=== PATIENT | male | born 1950 | race Caucasian/White ===

== ENCOUNTER 2020-05-02 21:22 | Inpatient (IN) | payer MEDICARE, OTHER, SELFPAY ==
[2020-05-02] VITALS (21 sets, daily range): BP systolic 97–153; BP diastolic 61–91; PULSE 89–138; RESP 2–30; TEMP 34–37.3; O2SAT 86–97
--- NOTE | 2020-05-02 21:15 | RT.EKG_ITS ---
APPROVED REPORT Exam: Resting ECG Patient Location: E HR:93 bpm ECG Measurements Heart Rate 93 AXIS DC 182 P 60 QRSd 98 QRS 82 QT 356 T 59 QTc 444 Conclusion Sinus rhythm...normal P axis, V-rate 60- 99 Low voltage, precordial leads...precordial leads <1.0mV
--- NOTE | 2020-05-02 21:44 | ED.GENADUL_ITS ---
Discharge Plan Discharge Details Chief Complaint: SOB Clinical Impression: Shortness of breath Primary Care Provider: Emmie,Local ED Provider: Fabian Hanks Home Meds and New Rx's Prescriptions: No Action furosemide 40 MG tablet 40 mg PO DAILY RF: 0 clopidogrel [Plavix] 75 MG tablet 75 mg PO DAILY RF: 0 tramadol 50 MG tablet 50 mg PO PRN PRNRF: 0 lorazepam 0.5 MG tablet 0.5 mg PO PRN PRNRF: 0 simvastatin 20 MG tablet 20 mg PO DAILY RF: 0 ferrous sulfate 325 MG tablet 325 mg PO DAILY RF: 0 gabapentin 300 MG capsule 300 mg PO TID RF: 0 folic acid 1 MG tablet 1 mg PO DAILY RF: 0 docusate sodium [Stool Softener] 100 MG capsule 100 mg PO DAILY RF: 0 cholecalciferol (vitamin D3) [Vitamin D3] 400 UNIT tablet 400 unit PO DAILY RF: 0 metoprolol tartrate 12.5 MG tablet 12.5 mg PO BID Qty: 60 RF: 0 Medical Decision Making 69 yo male with hx of copd and quit smoking in 2012, tia, t2dm, who has a house in [place] but lives in [facility] and has been in [place] since April 18 c omes in with worsening shortness of breath throughout the day. HE did not bring his albuterol nebulizer or his symbicort to [place] with him. He has a oxygen machine and tank that he uses as needed per patient and used it today but had worsening shortness of breath so came here and while in the waiting room his tank ran out. HE arrives with oxygen saturations in the 70's. He is speaking in 2-3 word sentences with diffuse wheezing in all lung osei bilaterally, no significant leg swelling or jvd. He denies any chest pain/pressure and denies fevers, does have a cough but is unsure if it is worse than normal. I suspect he is having a copd exacerbation given his exam and not having his symbicort, will tx with nebulizers and symbicort and reassess. HAs no crackles on exam and no jvd or peripheral edema and no chest pain or pressure so doubt chf or acs.NO findings to suggest dvt no pleuritic chest pain and symptoms and exam consistent with copd so doubt PE Differential Diagnosis Differential Diagnosis: copd exacerbation, pna, chf ECG Data Attestation: I personally reviewed and interpreted this ECG (s) as follows: Prior ECG tracings: not available for review Interpretation: sinus rhythm, rate of 93, pr 182, qtc 444 HPI General Mode of arrival: ambulatory . Date/Time Provider Initiated Documentation: 05/02/20 21:22 . Limitations to Documentation: no limitations . Information obtained by: patient . History of Present Illness 69 year old M presents to the emergency department with the chief complaint of shortness of breath, described as moderate, Patient started experiencing this day(s) (1) and it has been constant. No relieving factors improve symptom(s), No exacerbating factors reported . Related Data Home Medications Medication Instructions Recorded Confirmed cholecalciferol (vitamin D3) 400 unit PO DAILY 04/30/15 05/02/20 [Vitamin D3] clopidogrel [Plavix] 75 mg PO DAILY 04/30/15 05/02/20 docusate sodium [Stool Softener] 100 mg PO DAILY 04/30/15 05/02/20 ferrous sulfate 325 mg PO DAILY 04/30/15 05/02/20 folic acid 1 mg PO DAILY 04/30/15 05/02/20 furosemide 40 mg PO DAILY 04/30/15 05/02/20 gabapentin 300 mg PO TID 04/30/15 05/02/20 lorazepam 0.5 mg PO PRN PRN 04/30/15 05/02/20 simvastatin 20 mg PO DAILY 04/30/15 05/02/20 tramadol 50 mg PO PRN PRN 04/30/15 05/02/20 metoprolol tartrate 12.5 mg PO BID #60 tab 05/02/15 05/02/20 Previous Rx's Medication Instructions Recorded metoprolol tartrate 12.5 mg PO BID #60 tab 05/02/15 Allergies Allergy/AdvReac Type Severity Reaction Status Date / Time No Known Allergies Allergy Unverified 05/02/20 21:50 Review of Systems All systems reviewed & are unremarkable except as noted in HPI and below Constitutional Constitutional: Denies chills, Denies fever(s) and Denies weakness Cardiovascular Cardiovascular: Denies chest pain and Denies dyspnea Respiratory Respiratory: Denies cough and Denies dyspnea Gastrointestinal Gastrointestinal: Denies abdominal pain, Denies nausea and Denies vomiting Musculoskeletal Musculoskeletal: Denies joint swelling Neurologic Neurologic: Denies weakness Psychiatric Psychiatric: Denies depression [facility] Social History Smoking/Tobacco Use Status: Former Tobacco Use Quit Date: 07/21/12 Alcohol Intake: current Alcohol Intake frequency: a few times a week Drug use: Never Do you feel safe at home: Yes Do you feel safe in your relationship?: Yes Exam Const General: no acute distress Orientation: alert HENMT Head: normal to inspection Ears: external ears normal General nose exam: external nose normal Mouth: moist mucous membranes Eyes General: appearance normal, both eyes and all related structures Neck Neck: normal visual inspection Resp Effort & Inspection: audible wheezes Cardio Rate: regular rate Skin General skin exam: no rashes or lesions noted Neuro General: patient alert and patient oriented x3 Extrem General: normal to inspection Psych Mental Status: mental status grossly normal Course Lab/Test Results Lab/Test Results: 05/02/20 21:28 Blood Blood Culture - Pending 05/02/20 21:28 Blood Blood Culture - Pending
[2020-05-02] MEDS: methylPREDNISolone SUCC 125 MG VIAL IVP (21:53)
--- NOTE | 2020-05-02 22:00 | DI.RAD_ITS ---
EXAM: XR PORTABLE CHEST AP CLINICAL HISTORY: cough, shortness of breath TECHNIQUE: 2D digital imaging was performed. COMPARISON: CR CHEST 2 VIEWS PA,LAT from 04/30/2015 FINDINGS: MEDIASTINUM: Normal. HEART: Upper limits of normal in size. PULMONARY VASCULATURE: Normal. LUNGS: Increased interstitial infiltrates particularly in the lung bases left greater than right. PLEURAL SPACE: No pleural effusion or pneumothorax. BONE:Within normal limits for the patient's age. OTHER FINDINGS:Normal. IMPRESSION: Bilateral basilar interstitial infiltrates. DATA REPOSITORY: RADIATION DOSE DELIVERED:
[2020-05-02] MEDS: Albuterol/Ipratropium 3 ML UPD VIAL UPD ×2 (22:06→22:32)
[2020-05-02 22:15] LABS: BE (Venous) 7 mmol/L (-2-3); HCO3 (Venous) 34 mmol/L (23-28); O2 Sat (Venous) 83 %; TCO2 (Venous) 33 mmol/L (24-29); pH (Venous) 7.23 (7.31-7.41); pO2 (Venous) 53 mmHg
[2020-05-02 22:17] LABS: pCO2 (Venous) 81 mmHg (41-51)
--- NOTE | 2020-05-02 23:17 | RESPIRATORY ---
RT called to ED concerning patient being SOB when on 8L NC. Patient baseline is 4L-8L throughout the day as needed per , uses mostly for ambulation. RT asked to place patient on HF System to ease WOB, intial settings: 34 degree C/20LPM/FiO2 60%. RT worked with patient concerning setting and patient left comfortable.
[2020-05-02 23:18] LABS: PTT Activated 27.7 sec (21.0-31.4); Prothrombin Time 10.3 sec (9.3-11.0)
[2020-05-02 23:21] LABS: ALT 10 U/L (16-63); AST 12 U/L (15-37); Albumin 3.6 g/dL (3.4-5.0); Alkaline Phosphatase 145 U/L (46-116); Anion Gap 4.3 mmol/L (3-11); BUN 15 mg/dL (7-18); Bilirubin, Total 0.6 mg/dL (0.2-1.0); CO2 33.7 mmol/L (21.0-32.0); CREATININE 1.67 mg/dL (0.70-1.30); Calcium 8.9 mg/dL (8.5-10.1); Chloride 101 mmol/L (98-107); Glucose 167 mg/dL (74-106); Potassium 5.1 mmol/L (3.5-5.1); Sodium 139 mmol/L (136-145); Total Protein 7.7 g/dL (6.4-8.2); Troponin I < 0.05 ng/mL (<0.06)
[2020-05-02 23:27] LABS: Magnesium 1.9 mg/dL (1.8-2.4); NT-proBNP 1579 pg/mL (<300)
[2020-05-02 23:49] LABS: Abs Immature Grans 0.07 10^3/uL (0.0-0.06); Absolute Basophil Count 0.03 10^3/uL (0.0-0.2); Absolute Eosinophil Count 0.14 10^3/uL (0.0-0.7); Absolute Lymphocyte Count 0.66 10^3/uL (1.2-3.4); Absolute Neutrophil Count 13.72 10^3/uL (1.2-6.7); Basophils % 0.2; Eosinophils % 0.9; HCT 35.2 % (40.0-50.0); HGB 10.3 g/dL (13.5-17.5); Immature Grans % 0.5; Lymphocytes % 4.3; MCH 31.4 pg (27.0-33.0); MCHC 29.3 % (32.0-36.0); MCV 107.3 fL (80-95); MPV 10.2 fL (8.0-11.0); Monocytes % 5.2; Neutrophils % 88.9; Nucleated RBC 0 %; Platelet Count 244 10^3/uL (130-400); RBC 3.28 10^6/uL (4.36-5.78); RDW 13.9 % (11.8-14.1); RDW-SD 55.2 fL; WBC 15.43 10^3/uL (4.4-10.8)
[2020-05-02] MEDS: PIPERACILLIN/TAZO 4.5 GM in Normal Saline 100 ML IVPB (23:50)
[2020-05-03] VITALS (68 sets, daily range): BP systolic 113–174; BP diastolic 41–95; PULSE 82–112; RESP 4–27; TEMP 34–37.2; O2SAT 84–99
[2020-05-03] MEDS: VANCOMYCIN 1,000 MG in Normal Saline 250 ML 166.6666 MG IVPB (00:10)
--- NOTE | 2020-05-03 00:14 | W.PM.HP.N ---
Date of service: 05/03/20 Time of Service: 00:14 Assessment and Plan Assessment and plan (1) Pneumonia: Status: Acute Assessment and plan: CXR shows bilateral LL infiltrates. He was hospitalized just over a month ago in [place]. Zosyn and Vanc initiated. Monitor WBC count and blood cultures. Qualifiers: Pneumonia type: due to unspecified organism (2) Essential hypertension: Status: Acute Assessment and plan: SBP in the 120-150's currently Cont metoprolol Monitor (3) TIA (transient ischemic attack): Status: Acute Assessment and plan: Past history of TIA On Plavix, statin. (4) HLD (hyperlipidemia): Status: Acute Assessment and plan: Cont statin (5) Diabetes mellitus type 2 with neurological manifestations: Status: Acute Assessment and plan: He takes Trulicity at home Suspect his glucose readings will be elevated d/t IV steroid. Monitor with ACHS glucose readings. Correction Insulin dosing; adjust as necessary He does have diabetic peripheral neuropathy and uses Gabapentin; continue. (6) COPD (chronic obstructive pulmonary disease): Status: Chronic Assessment and plan: Previous 3 pack a day smoker Uses Symbicort and albuterol nebs at home Cont Symbicort. Scheduled Duonebs QID PRN albuterol nebs. 125mg IV solumedrol given in ED Begin 60mg IV solumedrol Q8H at 0600. Consider changing to oral prednisone particularly if blood sugar control becomes an issue. History of Present Illness History of Present Illness Chief Complaint: Shortness of breath Narrative: This is a 69 yo male with a h/o COPD, previous tobacco abuse, DM2, HTN, HLD, GERD. He endorsed shortness of air that began on the day of presentation; worsening throughout the day. He does have supplemental oxygen that he uses prn but it did not provide relief. He lives in [facility]. He and his have been at their camp in [place] since 04/18/2020. He did not bring his albuterol nebs or Symbicort with him. He denied CP/palpitations, F/C. + cough but essentially like his baseline. Upon arrival his RA O2 saturations were in the low 70's. He was placed on supplemental O2 per NC, then advanced to High-flow O2 to maintain his O2 saturations above 90%. WBC count 15.43 with a left shift. CXR showed Bilateral lower lobe infiltrates. Zosyn and Vancomycin initiated in the ED. Blood cultures drawn. Admitted to the ICU. Review of Systems All systems reviewed & are unremarkable except as noted in HPI and below PFSH Social History Smoking/Tobacco Use Status: Former Tobacco Use Quit Date: 07/21/12 Alcohol Intake: current Alcohol Intake frequency: a few times a week Drug use: Never Do you feel safe at home: Yes Do you feel safe in your relationship?: Yes Meds Home Medications and Allergies Home Medications Medication Instructions Recorded Confirmed Type cholecalciferol (vitamin D3) 400 unit PO DAILY 04/30/15 05/02/20 History [Vitamin D3] clopidogrel [Plavix] 75 mg PO DAILY 04/30/15 05/02/20 History docusate sodium [Stool Softener] 100 mg PO DAILY 04/30/15 05/02/20 History ferrous sulfate 325 mg PO DAILY 04/30/15 05/02/20 History folic acid 1 mg PO DAILY 04/30/15 05/02/20 History furosemide 40 mg PO DAILY 04/30/15 05/02/20 History gabapentin 300 mg PO TID 04/30/15 05/02/20 History lorazepam 0.5 mg PO PRN PRN 04/30/15 05/02/20 History simvastatin 20 mg PO DAILY 04/30/15 05/02/20 History tramadol 50 mg PO PRN PRN 04/30/15 05/02/20 History metoprolol tartrate 12.5 mg PO BID #60 tab 05/02/15 05/02/20 Rx Allergies Allergy/AdvReac Type Severity Reaction Status Date / Time No Known Allergies Allergy Unverified 05/02/20 21:50 Exam Const General: cooperative and no acute distress Nutritional Appearance: obese Orientation: alert and oriented x3 Eyes Sclera: sclerae normal Pupils: PERRL Resp Effort & Inspection: able to speak in complete sentences Auscultation: diminished lung sounds and rales bilaterally Cardio Jugular venous pressure: no JVD Rate: tachycardic Rhythm: regular rhythm Heart Sounds: S1 normal and S2 normal GI Palpation: soft and nontender Auscultation: normal bowel sounds Skin General skin exam: no rashes or lesions noted Neuro General: moves all extremities Cranial Nerves: CN's II-XI intact bilaterally Cognition: normal cognition Speech: speech normal Extrem General: no clubbing, cyanosis or edema Psych Appearance: grossly normal Mental Status: mental status grossly normal Speech and Movement: speech and movement normal Affect: normal affect Attitude: cooperative Results Labs Result diagrams: 05/02/20 23:30 05/02/20 22:40 Labs: Laboratory Results - last 24 hr 05/02/20 05/02/20 05/02/20 21:35 22:40 22:40 WBC RBC Hgb Hct MCV MCH MCHC RDW Plt Count MPV Immature Gran % Neutrophils % Band Neutrophils % Lymphocytes % Atypical Lymphs % Monocytes % Eosinophils % Basophils % Metamyelocytes % Myelocytes % Promyelocytes % Other Cells % Nucleated RBC % Absolute Neutrophils Absolute Lymphocytes Absolute Monocytes Absolute Eosinophils Absolute Basophils RBC Morphology Polychromasia Hypochromasia Poikilocytosis Basophilic Stippling Anisocytosis Microcytosis Macrocytosis Spherocytes Tear Drop Cells Ovalocytes Stomatocytes [place] Bodies [place] Cells/Echinocytes Acanthocytes (Spur) Schistocytes PT INR APTT VBG pH 7.23 L VBG pCO2 81 H* VBG pO2 53 VBG HCO3 34 H VBG Total CO2 33 H VBG O2 Saturation 83 VBG Base Excess 7 H Sodium 139 Potassium 5.1 Chloride 101 Carbon Dioxide 33.7 H Anion Gap 4.3 BUN 15 Creatinine 1.67 H Estimated GFR/1.73 m2 41.00 Glucose 167 H Calcium 8.9 Magnesium 1.9 Total Bilirubin 0.6 AST 12 L ALT 10 L Alkaline Phosphatase 145 H Troponin I < 0.05 NT-Pro-B Natriuret Pep 1579 H Total Protein 7.7 Albumin 3.6 05/02/20 05/03/20 22:40 05:35 WBC Cancelled RBC Cancelled Hgb Cancelled Hct Cancelled MCV Cancelled MCH Cancelled MCHC Cancelled RDW Cancelled Plt Count Cancelled MPV Cancelled Immature Gran % Cancelled Neutrophils % Cancelled Band Neutrophils % Cancelled Lymphocytes % Cancelled Atypical Lymphs % Cancelled Monocytes % Cancelled Eosinophils % Cancelled Basophils % Cancelled Metamyelocytes % Cancelled Myelocytes % Cancelled Promyelocytes % Cancelled Other Cells % Cancelled Nucleated RBC % Cancelled Absolute Neutrophils Cancelled Absolute Lymphocytes Cancelled Absolute Monocytes Cancelled Absolute Eosinophils Cancelled Absolute Basophils Cancelled RBC Morphology Cancelled Polychromasia Cancelled Hypochromasia Cancelled Poikilocytosis Cancelled Basophilic Stippling Cancelled Anisocytosis Cancelled Microcytosis Cancelled Macrocytosis Cancelled Spherocytes Cancelled Tear Drop Cells Cancelled Ovalocytes Cancelled Stomatocytes Cancelled [place] Bodies Cancelled Luan Cells/Echinocytes Cancelled Acanthocytes (Spur) Cancelled Schistocytes Cancelled PT 10.3 INR 1.0 APTT 27.7 VBG pH VBG pCO2 VBG pO2 VBG HCO3 VBG Total CO2 VBG O2 Saturation VBG Base Excess Sodium Potassium Chloride Carbon Dioxide Anion Gap BUN Creatinine Estimated GFR/1.73 m2 Glucose Calcium Magnesium Total Bilirubin AST ALT Alkaline Phosphatase Troponin I NT-Pro-B Natriuret Pep Total Protein Albumin Last Vital Signs Temp 37.3 C 05/02/20 23:51 Pulse 104 H 05/02/20 23:51 Resp 24 05/02/20 23:51 BP 146/61 H 05/02/20 23:51 Pulse Ox 97 05/02/20 23:51 COVID-19 Screening Have you,or household,traveled outside [place] in last 14 days?: No Had IN PERSON contact w/suspected or confirmed C-19 person: No
[2020-05-03] MEDS: traMADol 50 MG TAB PO (00:15)
[2020-05-03 00:16] LABS: Basophilic Stippling 1+; Macrocytosis 2+
[2020-05-03 00:17] LABS: Diff Comment Agrees w/ Instrument
[2020-05-03] MEDS: Albuterol/Ipratropium 3 ML UPD VIAL UPD ×4 (00:20→18:19)
[2020-05-03] MEDS: PIPERACILLIN/TAZO 3.375 GM in Normal Saline 50 ML IVPB ×3 (06:57→19:23)
[2020-05-03 07:21] LABS: Abs Immature Grans 0.07 10^3/uL (0.0-0.06); Absolute Basophil Count 0.01 10^3/uL (0.0-0.2); Absolute Lymphocyte Count 0.17 10^3/uL (1.2-3.4); Absolute Monocyte Count 0.11 10^3/uL (0.1-0.8); Absolute Neutrophil Count 11.78 10^3/uL (1.2-6.7); Basophils % 0.1; HCT 32.9 % (40.0-50.0); HGB 9.9 g/dL (13.5-17.5); Immature Grans % 0.6; Lymphocytes % 1.4; MCH 31.6 pg (27.0-33.0); MCHC 30.1 % (32.0-36.0); MCV 105.1 fL (80-95); MPV 10.3 fL (8.0-11.0); Monocytes % 0.9; Nucleated RBC 0 %; Platelet Count 216 10^3/uL (130-400); RBC 3.13 10^6/uL (4.36-5.78); RDW-SD 54.3 fL; WBC 12.14 10^3/uL (4.4-10.8)
[2020-05-03 07:31] LABS: Anion Gap 4.6 mmol/L (3-11); BUN 20 mg/dL (7-18); CO2 30.4 mmol/L (21.0-32.0); CREATININE 1.85 mg/dL (0.70-1.30); Calcium 8.5 mg/dL (8.5-10.1); Chloride 102 mmol/L (98-107); Estimated GFR 36.43 (mL/min/1.73m2); Glucose 280 mg/dL (74-106); Sodium 137 mmol/L (136-145)
[2020-05-03 07:35] LABS: Potassium 6.3 mmol/L (3.5-5.1)
--- NOTE | 2020-05-03 07:45 | RT.EKG_ITS ---
APPROVED REPORT Exam: Resting ECG Patient Location: I HR:99 bpm ECG Measurements Heart Rate 99 AXIS VA [id number] P [id number] QRSd 97 QRS 82 QT 335 T 51 QTc 430 Conclusion Sinus rhythm Low voltage, extremity and precordial leads...extremity<0.5mV, precordial<1.0mV
[2020-05-03] MEDS: Insulin REGULAR-Human 100 UNITS/ML UNIT IV ×2 (08:00→13:43)
[2020-05-03 08:11] LABS: Creatine Kinase 89 U/L (39-308)
--- NOTE | 2020-05-03 08:12 | W.PM.PROGNOT ---
Date of Service Date of service: 05/03/20 Time of Service: 12:37 Assessment and Plan Assessment and plan (1) Acute on chronic respiratory failure with hypoxia and hypercapnia: Status: Acute Assessment and plan: Due to BLL PNA, present on admission (?HCAP, ?COVID), causing acute exacerbation of COPD. BiPAP is indicated with the pH of 7.24, pCO2 of 73. Continue abx, nebs, steroids. Obtain sputum culture. Await blood cultures. Keep in ICU. (2) Pneumonia: Status: Acute Assessment and plan: As above Qualifiers: Pneumonia type: due to unspecified organism (3) Acute respiratory acidosis: Status: Acute Assessment and plan: As above (4) Acute exacerbation of chronic obstructive pulmonary disease (COPD): Status: Acute Assessment and plan: As above (5) Hyperkalemia: Status: Acute Assessment and plan: In setting of hyperglycemia. R/o DKA - obtain UA. Treating with IV insulin, renal diet. He is on lasix. Repeat BMP at 6 pm. (6) Steroid-induced hyperglycemia: Status: Acute Assessment and plan: Start long acting insulin. Continue corrective insulin as well. (7) Toxic metabolic encephalopathy: Status: Acute Assessment and plan: Likely due to CO2 narcosis. Monitor mental status on BiPAP. (8) Diabetes mellitus type 2 with neurological manifestations: Status: Chronic Assessment and plan: See steroid induced hyperglycemia (9) DVT prophylaxis: Status: Acute Assessment and plan: lovenox on hold due to hyperkalemia. Start TEDs/SCDs. (10) Discharge planning issues: Status: Acute Assessment and plan: Full code. Keep in ICU. Total Critical Care Time 60 minutes. Subjective Subjective Interval history since last seen: Afebrile. Afib 90-110. SBPs 130-150. Patient had been disoriented overnight, more awake this am, but then fell asleep and difficult to arouse since. When he did open his eyes, he would fall right back asleep. He was not answering my questions. He was having abdominal breathing with apneic pauses, c/w GAYATRI. When he did wake up somewhat, he was disoriented (A&Ox1), taking off his O2 (not yet on BiPAP) and trying to leave the room. O2 sats went down to low 70s on room air. He did eventually permit the humidified heated high flow to be replaced on him, and now is on BiPAP, trying to take it off. Impulsive. CHANG on minimal movements. Nursing reports congested cough. Hyperkalemic this am. Exam Narrative Exam Narrative: General: Obese male, lethargic and difficult to arouse, drooling, having abdominal breathing and apneic pauses, A&Ox1 when transiently awake, becomes uncooperative/impulsive. HEENT: EOMI, MMM Heart: RRR, no m/r/g Lungs: Rhonchi B anteriorly Abdomen: obese, soft, nontender Extremities: no edema BLEs Objective Last Vital Signs Temp 36.8 C 05/03/20 04:45 Pulse 101 H 05/03/20 06:02 Resp 20 05/03/20 06:02 BP 138/51 L 05/03/20 06:02 Pulse Ox 96 05/03/20 06:02 Laboratory Results - last 24 hr 05/02/20 05/02/20 05/02/20 21:35 22:40 22:40 WBC RBC Hgb Hct MCV MCH MCHC RDW Plt Count MPV Immature Gran % Neutrophils % Band Neutrophils % Lymphocytes % Atypical Lymphs % Monocytes % Eosinophils % Basophils % Metamyelocytes % Myelocytes % Promyelocytes % Other Cells % Nucleated RBC % Absolute Neutrophils Absolute Lymphocytes Absolute Monocytes Absolute Eosinophils Absolute Basophils RBC Morphology Polychromasia Hypochromasia Poikilocytosis Basophilic Stippling Anisocytosis Microcytosis Macrocytosis Spherocytes Tear Drop Cells Ovalocytes Stomatocytes [place] Bodies Luan Cells/Echinocytes Acanthocytes (Spur) Schistocytes PT INR APTT VBG pH 7.23 L VBG pCO2 81 H* VBG pO2 53 VBG HCO3 34 H VBG Total CO2 33 H VBG O2 Saturation 83 VBG Base Excess 7 H Sodium 139 Potassium 5.1 Chloride 101 Carbon Dioxide 33.7 H Anion Gap 4.3 BUN 15 Creatinine 1.67 H Estimated GFR/1.73 m2 41.00 Glucose 167 H Calcium 8.9 Magnesium 1.9 Total Bilirubin 0.6 AST 12 L ALT 10 L Alkaline Phosphatase 145 H Troponin I < 0.05 NT-Pro-B Natriuret Pep 1579 H Total Protein 7.7 Albumin 3.6 05/02/20 05/02/20 05/03/20 22:40 23:30 00:27 WBC 15.43 H RBC 3.28 L Hgb 10.3 L Hct 35.2 L MCV 107.3 H MCH 31.4 MCHC 29.3 L RDW 13.9 Plt Count 244 MPV 10.2 Immature Gran % 0.5 Neutrophils % 88.9 Band Neutrophils % Lymphocytes % 4.3 Atypical Lymphs % Monocytes % 5.2 Eosinophils % 0.9 Basophils % 0.2 Metamyelocytes % Myelocytes % Promyelocytes % Other Cells % Nucleated RBC % 0 Absolute Neutrophils 13.72 H Absolute Lymphocytes 0.66 L Absolute Monocytes 0.80 Absolute Eosinophils 0.14 Absolute Basophils 0.03 RBC Morphology See below Polychromasia Hypochromasia Poikilocytosis Basophilic Stippling 1+ Anisocytosis Microcytosis Macrocytosis 2+ Spherocytes Tear Drop Cells Ovalocytes Stomatocytes [place] Bodies [place] Cells/Echinocytes Acanthocytes (Spur) Schistocytes PT 10.3 INR 1.0 APTT 27.7 VBG pH VBG pCO2 VBG pO2 VBG HCO3 VBG Total CO2 VBG O2 Saturation VBG Base Excess Sodium Potassium Chloride Carbon Dioxide Anion Gap BUN Creatinine Estimated GFR/1.73 m2 Glucose Calcium Magnesium Total Bilirubin AST ALT Alkaline Phosphatase Troponin I Cancelled NT-Pro-B Natriuret Pep Total Protein Albumin 05/03/20 05/03/20 05/03/20 05:35 06:50 06:50 WBC Cancelled 12.14 H RBC Cancelled 3.13 L Hgb Cancelled 9.9 L Hct Cancelled 32.9 L MCV Cancelled 105.1 H MCH Cancelled 31.6 MCHC Cancelled 30.1 L RDW Cancelled 14.0 Plt Count Cancelled 216 MPV Cancelled 10.3 Immature Gran % Cancelled 0.6 Neutrophils % Cancelled 97.0 Band Neutrophils % Cancelled Lymphocytes % Cancelled 1.4 Atypical Lymphs % Cancelled Monocytes % Cancelled 0.9 Eosinophils % Cancelled 0.0 Basophils % Cancelled 0.1 Metamyelocytes % Cancelled Myelocytes % Cancelled Promyelocytes % Cancelled Other Cells % Cancelled Nucleated RBC % Cancelled 0 Absolute Neutrophils Cancelled 11.78 H Absolute Lymphocytes Cancelled 0.17 L Absolute Monocytes Cancelled 0.11 Absolute Eosinophils Cancelled 0.00 Absolute Basophils Cancelled 0.01 RBC Morphology Cancelled Polychromasia Cancelled Hypochromasia Cancelled Poikilocytosis Cancelled Basophilic Stippling Cancelled Anisocytosis Cancelled Microcytosis Cancelled Macrocytosis Cancelled Spherocytes Cancelled Tear Drop Cells Cancelled Ovalocytes Cancelled Stomatocytes Cancelled [place] Bodies Cancelled [place] Cells/Echinocytes Cancelled Acanthocytes (Spur) Cancelled Schistocytes Cancelled PT INR APTT VBG pH VBG pCO2 VBG pO2 VBG HCO3 VBG Total CO2 VBG O2 Saturation VBG Base Excess Sodium 137 Potassium 6.3 H* Chloride 102 Carbon Dioxide 30.4 Anion Gap 4.6 BUN 20 H Creatinine 1.85 H Estimated GFR/1.73 m2 36.43 Glucose 280 H D Calcium 8.5 Magnesium Total Bilirubin AST ALT Alkaline Phosphatase Troponin I NT-Pro-B Natriuret Pep Total Protein Albumin Objective Narrative Objective Narrative: EKG: HR 99, NSR, no acute ischemia, no peaked T waves; lead placement issues V1 and V2.
[2020-05-03 08:28] LABS: BE (Venous) 3 mmol/L (-2-3); HCO3 (Venous) 30 mmol/L (23-28); O2 Sat (Venous) 97 %; TCO2 (Venous) 29 mmol/L (24-29); pH (Venous) 7.28 (7.31-7.41); pO2 (Venous) 85 mmHg
[2020-05-03 08:39] LABS: pCO2 (Venous) 64 mmHg (41-51)
[2020-05-03] MEDS: Budesonide/Formoterol 160/4.5 6 GM 60 PUFF INH IH ×2 (09:29→21:12)
[2020-05-03] MEDS: Docusate Sodium 100 MG CAP PO (09:30)
[2020-05-03] MEDS: Furosemide 40 MG TAB PO (09:30)
[2020-05-03] MEDS: Gabapentin 300 MG CAP PO ×3 (09:30→21:09)
[2020-05-03] MEDS: Folic Acid 1 MG TAB PO (09:30)
[2020-05-03] MEDS: Clopidogrel 75 MG TAB PO (09:30)
[2020-05-03] MEDS: methylPREDNISolone SUCC 125 MG VIAL 60 MG IVP ×2 (09:31→16:59)
[2020-05-03] MEDS: Pantoprazole 40 MG VIAL IVP (09:32)
[2020-05-03] MEDS: Metoprolol 25 MG TAB 12.5 MG PO ×2 (09:32→21:09)
[2020-05-03] MEDS: Simvastatin 20 MG TAB PO (09:33)
--- NOTE | 2020-05-03 09:36 | INITIAL_ITS ---
- If Service Date Differs Date of service: 05/03/20 Time of Service: 09:36 Care Management Initial Assess REASON FOR HOSPITALIZATION:: Pneumonia PAST MEDICAL HISTORY/PAST SURGICAL HISTORY:: Diabetes Mellitus Type 2. Hypertension. Hyperlipidemia. COPD. TIA PREVIOUS FUNCTIONAL STATUS/SOCIAL/FAMILY SUPPORTS:: Malachi lives in [place], [place] with his Melania. They spend timer at their camp in [place] CURRENT FUNCTIONAL STATUS:: CM unable to meet with Malachi as he is a PUI. ADVANCE DIRECTIVES:: none on file Has patient been provided with info about the portal/API?: No Did the patient sign up for the portal?: No (out of state) CODE STATUS:: Full Code INSURANCE COVERAGE / FINANCIAL ISSUES:: [email or web address] Plan CURRENT HOME/COMMUNITY SERVICES/EQUIPMENT:: CPAP. Home oxygen at 2L PRIMARY CARE PHYSICIAN:: none local - lives in [place] POTENTIAL DISCHARGE NEEDS:: Follow up with PCP and discharge plan of care PATIENT/FAMILY EDUCATION NEEDS:: Discharge plan, limitations, follow up plan, Ask Me Three TRANSPORTATION:: via private vehicle with PLAN:: Malachi will likely be discharged home with no new services. He will foll ow up with his PCP and discharge plan of care. Malachi will transport via private vehicle with . CM will continue to support Oscar and assess for discharge planning needs.
[2020-05-03] MEDS: Insulin Aspart 300 UNITS/3 ML PEN SC ×4 (09:45→21:16)
[2020-05-03] MEDS: Cholecalciferol (Vitamin D3) 400 UNIT TAB PO (09:46)
[2020-05-03 12:43] LABS: BE 4 mmol/L (-2-3); HCO3 31 mmol/L (22-26); pH 7.24 (7.35-7.45); pO2 71 mmHg (80-105); sO2 93 % (95-98); tCO2 30 mmol/L (23-27)
[2020-05-03 12:49] LABS: FIO2 30 %; Site Left Radial; pCO2 73 mmHg (35-45)
[2020-05-03 12:51] LABS: Anion Gap 5.7 mmol/L (3-11); BUN 24 mg/dL (7-18); CO2 29.3 mmol/L (21.0-32.0); CREATININE 1.91 mg/dL (0.70-1.30); Calcium 8.4 mg/dL (8.5-10.1); Chloride 100 mmol/L (98-107); Estimated GFR 35.11 (mL/min/1.73m2); Glucose 321 mg/dL (74-106); Potassium 5.4 mmol/L (3.5-5.1); Sodium 135 mmol/L (136-145)
--- NOTE | 2020-05-03 13:26 | NUR.NOTE ---
G is reported to MD via [facility] at 12:45 p.m.Nursing Note:
[2020-05-03] MEDS: LORazepam 2 MG/ML VIAL 0.5 MG IVP (13:36)
--- NOTE | 2020-05-03 13:39 | PHA.REVIEW ---
Pharmacy Admission Review - Admission Clinical Review Pneumonia (Acute) Essential hypertension (Acute) TIA (transient ischemic attack) (Acute) HLD (hyperlipidemia) (Acute) Diabetes mellitus type 2 with neurological manifestations (Acute) No Known Allergies Allergy (Unverified 05/02/20 21:50) Height 5 ft 11 in Weight 111.9 kg - Renal Dosing Renal Dosing: BUN 24 mg/dL (7-18) H 05/03/20 12:25 Creatinine 1.91 mg/dL (0.70-1.30) H 05/03/20 12:25 Medications needing adjustments: Reviewed (CrCl ~46.4ml/min using adjusted bw) List of meds needing interventions: Zosyn renal dose adjustment not needed unless <40ml/min - Anticoagulation Anticoagulation: Hgb 9.9 g/dL (13.5-17.5) L 05/03/20 06:50 Hct 32.9 % (40.0-50.0) L 05/03/20 06:50 Plt Count 216 10^3/uL (130-400) 05/03/20 06:50 INR 1.0 (0.9-1.1) 05/02/20 22:40 Creatinine 1.91 mg/dL (0.70-1.30) H 05/03/20 12:25 DVT Prohphylaxis: Reviewed (on hold due to hyperkalemia) Therapeutic Anticoagulation: N/A - Opiate Usage Evaluate Pain Scale/Pains Meds: Reviewed - Relevant Labs Sodium 135 mmol/L (136-145) L 05/03/20 12:25 Potassium 5.4 mmol/L (3.5-5.1) H 05/03/20 12:25 Chloride 100 mmol/L (98-107) 05/03/20 12:25 Magnesium 1.9 mg/dL (1.8-2.4) 05/02/20 22:40 Electrolytes, C-Reactive P, ESR: Reviewed (2 doses of 5 units of regular insulin given for k+ level (6.3 this AM, repeat was 5.4)) - DM Control DM Control: Glucose 321 mg/dL (74-106) H 05/03/20 12:25 Finger Stick Blood Glucose 332 Finger Stick Blood Glucose 332 Finger Stick Blood Glucose 274 Finger Stick Blood Glucose 274 Insulin Dosing: Reviewed (aspart per SS plus lantus 10U HS started today 05/03 (new)) - Heart Failure/WV Heart Failure/WV: Troponin I Cancelled 05/03/20 00:27 NT-Pro-B Natriuret Pep 1579 pg/mL (<300) H 05/02/20 22:40 EF%, REMA's, B-Blockers, Diuretics: Reviewed - BP Control BP Control: Blood Pressure [Right Arm] 138/54 Blood Pressure 149/63 Blood Pressure 130/52 Blood Pressure 130/52 Blood Pressure 135/58 Blood Pressure 138/54 Blood Pressure 140/57 Blood Pressure 138/51 Blood Pressure 136/52 Blood Pressure 132/42 Blood Pressure 150/58 If elevated: Reviewed - Qtc Review If Elevated: Reviewed - IV to PO Switch IV Medications: Reviewed - Home Meds Home Med List reviewed: Reviewed Relevent Home Meds Not ordered & why?: ferrous sulfate 325; rest ordered - Current meds Current Medication Order Review: Intervened (only a 1 time dose was ordered in the ED -- pharmacy protocol dosing was not ordered, spoke to MD and should have been continued, dosed per protocol at 1 gram q20h. The initial loading dose should have been higher so I timed the next dose to be given after 16 hours as opposed to 20) - Comments Comments/Follow Ups: Zosyn plus vancomycin for pneumonia (was hospitalized just over a month ago in [place]) -- WATCH KIDNEY FUNCTION
[2020-05-03 16:17] LABS: COVID-19 RT-PCR UVMMC Result Negative (Negative)
[2020-05-03] MEDS: VANCOMYCIN 1,000 MG in Normal Saline 250 ML 166.667 MG IVPB (16:58)
[2020-05-03 16:59] LABS: BE (Venous) 3 mmol/L (-2-3); HCO3 (Venous) 30 mmol/L (23-28); O2 Sat (Venous) 97 %; TCO2 (Venous) 29 mmol/L (24-29); pH (Venous) 7.27 (7.31-7.41); pO2 (Venous) 86 mmHg
[2020-05-03 17:01] LABS: pCO2 (Venous) 65 mmHg (41-51)
[2020-05-03] MEDS: Normal Saline Flush 10 ML SYR IVP (17:01)
[2020-05-03 19:23] LABS: Anion Gap 6.1 mmol/L (3-11); BUN 26 mg/dL (7-18); CO2 29.9 mmol/L (21.0-32.0); CREATININE 1.98 mg/dL (0.70-1.30); Calcium 8.7 mg/dL (8.5-10.1); Chloride 101 mmol/L (98-107); Estimated GFR 33.68 (mL/min/1.73m2); Glucose 263 mg/dL (74-106); Potassium 4.7 mmol/L (3.5-5.1); Sodium 137 mmol/L (136-145)
[2020-05-03] MEDS: Insulin Glargine 300 UNITS/3 ML PEN 10 UNITS SC (21:13)
[2020-05-03 22:53] LABS: Bilirubin Negative (Negative); Blood Negative (Negative); Clarity Clear (Clear); Glucose Negative (Negative); Ketones Negative (Negative); Leukocyte Esterase Negative (Negative); Nitrite Negative (Negative); Urobilinogen 0.2 EU/dL (Up TO 0.2); pH 5.5 (5-8)
[2020-05-04] VITALS (49 sets, daily range): BP systolic 122–149; BP diastolic 39–78; PULSE 10–123; RESP 4–29; TEMP 36.5–36.6; O2SAT 87–97
--- NOTE | 2020-05-04 | DI.RAD_ITS ---
EXAM: XR PORTABLE CHEST AP CLINICAL HISTORY: Follow up pneumonia TECHNIQUE: 2D digital imaging was performed. COMPARISON: CR,XR XR PORTABLE CHEST AP from 05/02/2020 FINDINGS: MEDIASTINUM: Normal. HEART: Normal. PULMONARY VASCULATURE: Normal. LUNGS: Bilateral basilar infiltrates have significantly improved with mild residual infiltrates in th e left lung base. No new infiltrates are present. PLEURAL SPACE: No pleural effusion or pneumothorax. BONE:Within normal limits for the patient's age. OTHER FINDINGS:Normal. IMPRESSION: Significant improvement in the bibasilar infiltrates since 05/02/2020. DATA REPOSITORY: RADIATION DOSE DELIVERED:
[2020-05-04] MEDS: PIPERACILLIN/TAZO 3.375 GM in Normal Saline 50 ML IVPB ×5 (01:29→23:42)
[2020-05-04] MEDS: methylPREDNISolone SUCC 125 MG VIAL 60 MG IVP ×2 (01:30→07:44)
[2020-05-04] MEDS: Albuterol/Ipratropium 3 ML UPD VIAL UPD ×5 (01:30→23:42)
[2020-05-04 07:07] LABS: Abs Immature Grans 0.08 10^3/uL (0.0-0.06); Absolute Monocyte Count 0.28 10^3/uL (0.1-0.8); Basophils % 0.1; HCT 31.1 % (40.0-50.0); HGB 9.5 g/dL (13.5-17.5); Immature Grans % 0.5; MCH 31.8 pg (27.0-33.0); MCHC 30.5 % (32.0-36.0); MPV 10.5 fL (8.0-11.0); Monocytes % 1.8; Neutrophils % 95.6; Nucleated RBC 0 %; Platelet Count 216 10^3/uL (130-400); RBC 2.99 10^6/uL (4.36-5.78); RDW 13.9 % (11.8-14.1); RDW-SD 53.9 fL; WBC 15.38 10^3/uL (4.4-10.8)
[2020-05-04 07:14] LABS: Absolute Basophil Count 0.02 10^3/uL (0.0-0.2); Absolute Lymphocyte Count 0.31 10^3/uL (1.2-3.4)
[2020-05-04 07:21] LABS: Anion Gap 6.5 mmol/L (3-11); BUN 31 mg/dL (7-18); CO2 31.5 mmol/L (21.0-32.0); CREATININE 2.02 mg/dL (0.70-1.30); Calcium 8.2 mg/dL (8.5-10.1); Chloride 101 mmol/L (98-107); Estimated GFR 32.91 (mL/min/1.73m2); Glucose 303 mg/dL (74-106); Magnesium 1.6 mg/dL (1.8-2.4); Potassium 5.1 mmol/L (3.5-5.1); Sodium 139 mmol/L (136-145)
[2020-05-04] MEDS: Pantoprazole 40 MG VIAL IVP (07:38)
[2020-05-04] MEDS: Metoprolol 25 MG TAB 12.5 MG PO ×2 (07:39→19:31)
[2020-05-04] MEDS: Gabapentin 300 MG CAP PO ×3 (07:39→19:31)
[2020-05-04] MEDS: Clopidogrel 75 MG TAB PO (07:39)
[2020-05-04] MEDS: Docusate Sodium 100 MG CAP PO (07:39)
[2020-05-04] MEDS: Simvastatin 20 MG TAB PO (07:40)
[2020-05-04] MEDS: Furosemide 40 MG TAB PO (07:40)
[2020-05-04] MEDS: Folic Acid 1 MG TAB PO (07:40)
[2020-05-04] MEDS: Cholecalciferol (Vitamin D3) 400 UNIT TAB PO (07:41)
[2020-05-04] MEDS: Normal Saline Flush 10 ML SYR IVP (07:47)
[2020-05-04] MEDS: Insulin Aspart 300 UNITS/3 ML PEN SC ×7 (07:57→21:33)
[2020-05-04 08:15] LABS: BE (Venous) 6 mmol/L (-2-3); HCO3 (Venous) 30 mmol/L (23-28); O2 Sat (Venous) 99 %; TCO2 (Venous) 28 mmol/L (24-29); pCO2 (Venous) 47 mmHg (41-51); pH (Venous) 7.42 (7.31-7.41); pO2 (Venous) 97 mmHg
[2020-05-04] MEDS: Budesonide/Formoterol 160/4.5 6 GM 60 PUFF INH IH ×2 (08:15→19:31)
--- NOTE | 2020-05-04 08:25 | W.PM.PROGNOT ---
Date of Service Date of service: 05/04/20 Time of Service: 10:58 Assessment and Plan Assessment and plan (1) Acute on chronic respiratory failure with hypoxia and hypercapnia: Status: Acute Assessment and plan: Multifactorial, due to BLL PNA, present on admission (likely HCAP, COVID negative), causing acute exacerbation of COPD, in addition to GAYATRI, for which the patient was not using his home BiPAP due to recent cataract surgery and relying on likely supratherapeutic doses of oxygen through his concentrator and, therefore, causing CO2 retention. pH today is 7.4. Continue abx, nebs, start to taper steroids. Care management is attempting to get in touch with the patient's to instruct her that she either needs to bring the machine from [place]. or will need to take him straight to [place] upon discharge. Await sputum culture. Negative blood cultures. OK to transfer out of ICU. (2) Pneumonia: Status: Acute Assessment and plan: As above Qualifiers: Pneumonia type: due to unspecified organism (3) Acute respiratory acidosis: Status: Acute Assessment and plan: As above (4) Acute exacerbation of chronic obstructive pulmonary disease (COPD): Status: Acute Assessment and plan: As above (5) GAYATRI treated with BiPAP: Status: Acute Assessment and plan: As above. The patient will sleep with BiPAP at our facility. (6) Hyperkalemia: Status: Acute Assessment and plan: In setting of hyperglycemia. Better. No evidence of DKA. I have increased his insulin. (7) Steroid-induced hyperglycemia: Status: Acute Assessment and plan: Increase long acting insulin. Schedule prandial insulin. Continue corrective insulin as well. Steroid dose is being decreased today. (8) Toxic metabolic encephalopathy: Status: Resolved Assessment and plan: Due to CO2 narcosis. Resolved with BiPAP. (9) Diabetes mellitus type 2 with neurological manifestations: Status: Chronic Assessment and plan: See steroid induced hyperglycemia (10) DVT prophylaxis: Status: Acute Assessment and plan: lovenox on hold due to hyperkalemia. Continue TEDs/SCDs. (11) Discharge planning issues: Status: Acute Assessment and plan: Full code. Transfer out of ICU. Patient tells me that the soonest his would be able to pick him up/bring his home BiPAP machine would be Friday. Care management was made aware. I think he will likely be medically stable for discharge Friday-Friday. Subjective Subjective Interval history since last seen: A&Ox3 today, and much clearer as far as mentation. The patient shares with me has has GAYATRI and has both a machine (Resmed astral 150, similar to a trilogy) and an oxygen concentrator at home. Because he had a cataract surgery on his R eye 1 month ago, he was told not to use the machine until the right eye heals (next Friday), but to rely on the oxygen concentrator instead. He did not bring his Resmed Astral with him to [place]. We discussed how he MUST sleep on the BiPAP, because otherwise he will . He verbalized understanding. We also discussed that he cannot be discharged unless arrangements are mande for him to have access to the machine that night. Slept on BiPAP. Took it off 6 am. 3 L of O2 now, 93-94%. He states 3 L at home is his baseline. (He has a prescription for 2 L of O2 at home through [facility].) Denies dizziness, chest pain, shortness of breath, nausea. States his wheezing is chronic for him since 2012, when he had sepsis from pneumonia (and had 2 cardiac arrests during that hospitalization). Patient admitted to care management that he drinks several times a week. He has shown no signs of alcohol withdrawal so far. Exam Narrative Exam Narrative: General: Obese male, very awake and alert, A&Ox3, able to tell his story/have an intelligent conversation. No evidence of tremors/alcohol withdrawal at this time. HEENT: EOMI, MMM Heart: RRR, no m/r/g Lungs: Expiratory wheezing B, quite impressive Abdomen: obese, soft, nontender Extremities: no edema BLEs Objective Last Vital Signs Temp 36.5 C 05/04/20 03:43 Pulse 93 H 05/04/20 03:43 Resp 15 05/04/20 03:43 BP 131/49 L 05/04/20 03:43 Pulse Ox 93 05/04/20 07:08 Laboratory Results - last 24 hr 05/02/20 05/03/20 05/03/20 22:40 08:15 12:25 WBC RBC Hgb Hct MCV MCH MCHC RDW Plt Count MPV Immature Gran % Neutrophils % Lymphocytes % Monocytes % Eosinophils % Basophils % Nucleated RBC % Absolute Neutrophils Absolute Lymphocytes Absolute Monocytes Absolute Eosinophils Absolute Basophils ABG Sample Site ABG pH ABG pCO2 ABG pO2 ABG HCO3 ABG Total CO2 ABG O2 Saturation ABG Base Excess VBG pH 7.28 L VBG pCO2 64 H* VBG pO2 85 VBG HCO3 30 H VBG Total CO2 29 VBG O2 Saturation 97 VBG Base Excess 3 Oxygen Liter Flow FiO2 Sodium 135 L Potassium 5.4 H Chloride 100 Carbon Dioxide 29.3 Anion Gap 5.7 BUN 24 H Creatinine 1.91 H Estimated GFR/1.73 m2 35.11 Glucose 321 H Calcium 8.4 L Magnesium Urine Color Urine Clarity Urine pH Ur Specific [place] Urine Protein Urine Ketones Urine Blood Urine Nitrite Urine Bilirubin Urine Urobilinogen Ur Leukocyte Esterase Urine Glucose COVID-19 PCR Negative Nasopharyn COVID-19 PCR Not Applicable Ref Test Perform Site Page [facility] lab 05/03/20 05/03/20 05/03/20 12:39 16:27 16:45 WBC RBC Hgb Hct MCV MCH MCHC RDW Plt Count MPV Immature Gran % Neutrophils % Lymphocytes % Monocytes % Eosinophils % Basophils % Nucleated RBC % Absolute Neutrophils Absolute Lymphocytes Absolute Monocytes Absolute Eosinophils Absolute Basophils ABG Sample Site Left radial Cancelled ABG pH 7.24 L Cancelled ABG pCO2 73 H* Cancelled ABG pO2 71 L Cancelled ABG HCO3 31 H Cancelled ABG Total CO2 30 H Cancelled ABG O2 Saturation 93 L Cancelled ABG Base Excess 4 H Cancelled VBG pH VBG pCO2 VBG pO2 VBG HCO3 VBG Total CO2 VBG O2 Saturation VBG Base Excess Oxygen Liter Flow Cancelled FiO2 30 Cancelled Sodium 137 Potassium 4.7 Chloride 101 Carbon Dioxide 29.9 Anion Gap 6.1 BUN 26 H Creatinine 1.98 H Estimated GFR/1.73 m2 33.68 Glucose 263 H Calcium 8.7 Magnesium Urine Color Urine Clarity Urine pH Ur Specific [place] Urine Protein Urine Ketones Urine Blood Urine Nitrite Urine Bilirubin Urine Urobilinogen Ur Leukocyte Esterase Urine Glucose COVID-19 PCR Nasopharyn COVID-19 PCR Ref Test Perform Site 05/03/20 05/03/20 05/04/20 16:45 22:10 06:15 WBC RBC Hgb Hct MCV MCH MCHC RDW Plt Count MPV Immature Gran % Neutrophils % Lymphocytes % Monocytes % Eosinophils % Basophils % Nucleated RBC % Absolute Neutrophils Absolute Lymphocytes Absolute Monocytes Absolute Eosinophils Absolute Basophils ABG Sample Site ABG pH ABG pCO2 ABG pO2 ABG HCO3 ABG Total CO2 ABG O2 Saturation ABG Base Excess VBG pH 7.27 L VBG pCO2 65 H* VBG pO2 86 VBG HCO3 30 H VBG Total CO2 29 VBG O2 Saturation 97 VBG Base Excess 3 Oxygen Liter Flow FiO2 Sodium 139 Potassium 5.1 Chloride 101 Carbon Dioxide 31.5 Anion Gap 6.5 BUN 31 H Creatinine 2.02 H Estimated GFR/1.73 m2 32.91 Glucose 303 H Calcium 8.2 L Magnesium 1.6 L Urine Color Yellow Urine Clarity Clear Urine pH 5.5 Ur Specific [place] 1.020 Urine Protein Negative Urine Ketones Negative Urine Blood Negative Urine Nitrite Negative Urine Bilirubin Negative Urine Urobilinogen 0.2 Ur Leukocyte Esterase Negative Urine Glucose Negative COVID-19 PCR Nasopharyn COVID-19 PCR Ref Test Perform Site 05/04/20 05/04/20 06:15 08:08 WBC 15.38 H RBC 2.99 L Hgb 9.5 L Hct 31.1 L MCV 104.0 H MCH 31.8 MCHC 30.5 L RDW 13.9 Plt Count 216 MPV 10.5 Immature Gran % 0.5 Neutrophils % 95.6 Lymphocytes % 2.0 Monocytes % 1.8 Eosinophils % 0.0 Basophils % 0.1 Nucleated RBC % 0 Absolute Neutrophils 14.70 H Absolute Lymphocytes 0.31 L Absolute Monocytes 0.28 Absolute Eosinophils 0.00 Absolute Basophils 0.02 ABG Sample Site ABG pH ABG pCO2 ABG pO2 ABG HCO3 ABG Total CO2 ABG O2 Saturation ABG Base Excess VBG pH 7.42 H VBG pCO2 47 VBG pO2 97 VBG HCO3 30 H VBG Total CO2 28 VBG O2 Saturation 99 VBG Base Excess 6 H Oxygen Liter Flow FiO2 Sodium Potassium Chloride Carbon Dioxide Anion Gap BUN Creatinine Estimated GFR/1.73 m2 Glucose Calcium Magnesium Urine Color Urine Clarity Urine pH Ur Specific [place] Urine Protein Urine Ketones Urine Blood Urine Nitrite Urine Bilirubin Urine Urobilinogen Ur Leukocyte Esterase Urine Glucose COVID-19 PCR Nasopharyn COVID-19 PCR Ref Test Perform Site CXR: pending
[2020-05-04] MEDS: MAGNESIUM SULFATE 2 GM/50 ML BAG IVPB (08:53)
[2020-05-04 09:42] LABS: Folate > 20.0 ng/mL (8.6-20.0)
--- NOTE | 2020-05-04 09:47 | RESPIRATORY ---
RT called [facility] to verify pt's home O2 prescription as it seemed pt was unsure of his normal settings. After talking with [facility], it was found that patient was prescribed 2L O2 continuous via nasal cannula and also that he was set up with a ResGivU Astral 150 home system. [facility] faxed over his prescription and current settings for this machine. Home compliance and understanding of machine and O2 use was questionable. It is also noted that [facility] was unaware that the patient was to be traveling away from his home in [place] to [place].
--- NOTE | 2020-05-04 11:55 | W.INDIABCONS ---
Date of service: 05/04/20 Time of Service: 11:55 Diabetes Inpatient Consult DESCRIPTION/ASSESSMENT: 69 year old male admitted to ICU with chronic respiratory failure, steriod induced hyperglycemia with long hx of DM2, COPD, HTN, HLD, GERD. Unable to meet with pt today. Will meet with pt when available and provide diabetic education. BS since admit > 250 md/dl due to steriod use. Currently on aspart 5 u q4, on lantus 20 u pm. Labs indicate elevated BUN/Cre, no recent A1C. BMI indicates class 1 obesity. Malachi is visiting [place] from [place]. INTERVENTION: will provide diabetes education when available. PLAN: will follow BS, labs, po intake and weight. Time Spent in Nutritional Counseling and Treatment: 0 time spent face to face
[2020-05-04] MEDS: methylPREDNISolone SUCC 40 MG VIAL IVP ×2 (12:03→19:30)
[2020-05-04] MEDS: Thiamine 100 MG TAB PO (12:04)
--- NOTE | 2020-05-04 12:07 | RESPIRATORY ---
Called [facility] to discuss Pt machine. Per [facility] Pt has Resmed Astral 150 IVAPS AE mode, RR 15, Tidal Volume 412, Pressure Support 5-20, Peep 5-15 with 2lpm bleed in O2. Pt has had Machine sense November 2018.
--- NOTE | 2020-05-04 12:25 | IN_ITS ---
Date of service: 05/04/20 Time of Service: 12:25 PT Notes Visit Reasons: COPD, PNEUMONIA Physical Therapy Inpatient Initial Evaluation Date: 05/04/2020 Referring Doctor: Jerrica Felder MD PT Orders: PT CONSULT: Limited ability Precautions: Fall. Standard. Activity as tolerated. Patient Profile/Admitting Diagnosis: Wilver is a 69-year-old male who presented to the ED on 05/02/2020 with chief complaints of worsening shortness of breath. He is diagnosed pneumonia, essential hypertension, transient ischemic attack, hyperlipidemia, and acute on chronic respiratory failure with hypoxia and hypercapnia. PMHX: Diabetes Mellitus Chronic Obstructive Disease Social History/Home Situation: Originally from [place]. Travels to [place] every year to [place]. Has a camper in [place], [place] that they have had for over 20 years. Did not have oxygen supplementation prior to hospital admission. uses Bipap at home at night. Equipment Owned/DME: BiPAP, no assistive ambulatory device Subjective: Patient is alert and cooperative. Agreeable to PT consult. Reports no pain at rest but complained of mild shortness of breath. States no falls in the past year. Objective: General Observation: Telemetry monitoring in place. IV in R LE. Bilateral TEDS on. Mental Status: Alert and oriented x 4 Pain: None reported ROM: Right Upper Extremity: Shoulder Flexion WFL. Shoulder abduction WFL. Elbow flexion WFL. Wrist flexion WFL. Opening and closing of hand WFL. Left Upper Extremity: Shoulder Flexion WFL. Shoulder abduction WFL. Elbow flexion WFL. Wrist flexion WFL. Opening and closing of hand WFL. Right Lower Extremity: Hip flexion WFL. Hip abduction WFL. Knee flexion WFL. Ankle dorsiflexion WFL. Ankle plantarflexion WFL. Left Lower Extremity: Hip flexion WFL. Hip abduction WFL. Knee flexion WFL. Ankle dorsiflexion WFL. Ankle plantarflexion WFL. Strength: Right Upper Extremity: Shoulder flexors 5/5. Shoulder abductors 5/5. Elbow flexors 5/5. Elbow extensors 5/5. Environmental Monitoring Technician strong. Left Upper Extremity: Shoulder flexors 5/5. Shoulder abductors 5/5. Elbow flexors 5/5. Elbow extensors 5/5. Environmental Monitoring Technician strong. Right Lower Extremity: Hip flexors 4/5. Hip abductors 4/5. Knee flexors 4/5. Knee extensors 4/5. Ankle dorsiflexors 4/5. Ankle plantarflexors 4/5. Left Lower Extremity: Hip flexors 4/5. Hip abductors 4/5. Knee flexors 4/5. Knee extensors 4/5. Ankle dorsiflexors 4/5. Ankle plantarflexors 4/5. Sensation: Intact as to pain and pressure on bilateral lower extremities. Bed Mobility/Transfers: Supine to sit SBA with HOB at 30 degrees Sit to stand contact guard assist Stand to sit stand by assist Bed to chair stand by assist Chair to bed stand by assist Gait: 100 feet using the front-wheeled walker with full weight bearing with CGA with decreased ho and impaired visual acuity in the right eye. Mild SOB with desaturation to 85% on 2L/min. Balance: Static Sitting: Normal Dynamic Sitting: Normal Static Standing: Fair Dynamic Standing: Fair Special Tests: Mobility Limitations Standardized Measure [facility] AM-PAC 6 clicks Basic Mobility Inpatient Short Form: Raw Score: 18 CMS Score: 47% deficit Informed Consent/Education: Patient instructed in purpose of PT consult and plan of care. Assessment: Bill demonstrates functional mobility decline requiring the use of a front-wheeled walker for all mobility ADL performance, impaired activity tolerance, balance impairment, and increased risk for falls resulting from admitting diagnosis. Patient presents with clinical signs and symptoms consistent with current/admitting diagnoses that have resulted to mobility limitations, gait instability, generalized weakness, and impairment of motor control as demonstrated by the following impairment level findings: 1. Decreased strength to B LE major muscle groups 2. Impaired standing balance 3. Impaired activity tolerance 4. Shortness of breath with activity Impairments are contributing to the following functional limitations: 1. Dependent bed mobility skills 2. Increased dependence with transfers 3. Inability to safely ambulate without assistive device and physical assistance 4. Increase completion time for mobility ADL performance 5. Increased fall risk 6. Inability to negotiate steps alone safely Patient is assessed as a [id number] moderate complexity based on the following: History: 69-year-old male with impairment level findings, functional limitations, and past medical history as indicated above Examination: Demonstrable impairment in strength, balance, and mobility level with underlying impairments and functional limitations as documented above Presentation:Evolving Decision Makin moderate complexity Goals: Goals X1 week 1. Supine-Sit independent 2. Sit-Supine independent 3. Sit-Stand independent 4. Stand-Sit independent 5. Bed-Chair independent 6. Chair-Bed independent 7. Independent gait on level surface with use of front-wheeled walker or single point cane for at least 300 feet without report of pain nor dyspnea 8. Independent stair negotiation while holding onto bilateral rails for at least 5 steps without report of pain nor dyspnea 9. Independent with home exercise program 10. Good static and dynamic standing balance/tolerance Plan of Care/Treatment Plan: 1-2x/day, 7 days/week x 1 week. Plan of care has been reviewed with the NICKEL OPERATOR providing the service under Physical Therapy direction. Initiate Physical Therapy intervention for strengthening, bed mobility, transfers, gait, stairs, balance training, use of assistive device. DISCHARGE RECOMMENDATIONS: Home when medically cleared by hospitalist. May benefit from the use of a front-wheeled walker or a single-point cane at home. TREATMENT CODE/TIME: 16162 x 25 minutes, 09525 x 25 minutes beginning 12:25 PM. Thank you for the opportunity to participate in the care of this patient. Juliet Laguna PT, DPT, CLT [facility] [place], [place]
[2020-05-04] MEDS: VANCOMYCIN 1,000 MG in Normal Saline 250 ML 166.667 MG IVPB (12:57)
--- NOTE | 2020-05-04 14:29 | PCNE_ITS ---
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 Palliative care was consulted to discuss goals of care. He was seen in the ICU in his room. He Lives in [place], camp in [place], will never live here, will go back to [place]. He states that does not think it is necessary to discuss advanced care planning or goals of care. He did say that he would like to live as long as his , but then acknowledged that this is an unrealistic goal as she is 20 years younger than him and healthy. We briefly discussed CODE status. At this point, he is a FULL CODE. He has survived 2 cardiac arrests in 2013 during a hospitalization for PNA with sepsis. We discussed that as his chronic medical conditions progress, he will be less likely to survive a cardiac arrest. He was able to articulate some goals: He wants to be able to do firewood at his camp. Continue going to his camp in [place]. Wants to live as long as his , but understands that that is not a realistic goal as she is 20 years younger than him. 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 Assessment and Plan Assessment and plan (1) Pneumonia: Status: Acute Qualifiers: Pneumonia type: due to unspecified organism (2) Acute exacerbation of chronic obstructive pulmonary disease (COPD): Status: Acute (3) Acute on chronic respiratory failure with hypoxia and hypercapnia: Status: Acute (4) Steroid-induced hyperglycemia: Status: Acute (5) GAYATRI treated with BiPAP: Status: Acute (6) Diabetes mellitus type 2 with neurological manifestations: Status: Chronic (7) Palliative care encounter: Status: Acute Assessment and plan: Mr. 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 Palliative was consulted to discuss goals of care. Mr. Garg is not interested in discussing goals of care or advanced care planning. He was able to articulate some goals. He is not interested in changing his code status at this time, likely due to the fact that he has survived cardiac arrest in the past (2012). This would be an ongoing conversation, ho wever, he does not live locally and will not follow up with this Palliative care office. I would be happy to follow up with him in the future if he is hospitalized at [facility] again. Review of Systems Narrative: Alex denies feeling SOB, he is feeling significantly better than he was when he came in. He denies CP/pressure, he is eating and drinking well, denies N/V/D. He states he walked around and did not feel weak or SOB. FOR[facility]LY [facility], [facility] Medical History Cardiac arrest due to respiratory disorder Chronic respiratory failure with hypoxia and hypercapnia COPD (chronic obstructive pulmonary disease) Diabetes mellitus type 2 with neurological manifestations Essential hypertension HLD (hyperlipidemia) Obesity (BMI 30-39.9) GAYATRI treated with BiPAP TIA (transient ischemic attack) Vision loss, left eye Surgical History S/P cataract extraction and insertion of intraocular lens right eye Social History Smoking/Tobacco Use Status: Former Tobacco Use Quit Date: 07/21/12 Alcohol Intake: current Alcohol Intake frequency: a few times a week Drug use: Never Do you feel safe at home: Yes Do you feel safe in your relationship?: Yes Exam Narrative Exam Narrative: General: 69 year old man, sitting up in the chair, awake and alert, pleasant and cooperative, talkative, answers questions appropriately. HEENT: normocephalic, atraumatic, pupils equal and round, mucous membranes moist. Neck: supple. Cardiovascular: heart has regular rate and rhythm, mildly tachycardic, HR 106. Respiratory: wheezing noted bilaterally. Does not appear to have increased WOB. GI: +BS, abdomen soft, nontender on palpation, nondistended. Extremities: no edema. Results Last Vital Signs Temp 36.5 C 05/04/20 09:13 Pulse 89 05/04/20 11:01 Resp 18 05/04/20 11:01 BP 132/64 05/04/20 11:01 Pulse Ox 93 05/04/20 11:35 Labs Result diagrams: 05/04/20 06:15 05/04/20 06:15 Labs: Laboratory Results - last 24 hr 05/02/20 05/03/20 05/03/20 22:40 16:27 16:45 WBC RBC Hgb Hct MCV MCH MCHC RDW Plt Count MPV Immature Gran % Neutrophils % Lymphocytes % Monocytes % Eosinophils % Basophils % Nucleated RBC % Absolute Neutrophils Absolute Lymphocytes Absolute Monocytes Absolute Eosinophils Absolute Basophils ABG Sample Site Cancelled ABG pH Cancelled ABG pCO2 Cancelled ABG pO2 Cancelled ABG HCO3 Cancelled ABG Total CO2 Cancelled ABG O2 Saturation Cancelled ABG Base Excess Cancelled VBG pH VBG pCO2 VBG pO2 VBG HCO3 VBG Total CO2 VBG O2 Saturation VBG Base Excess Oxygen Liter Flow Cancelled FiO2 Cancelled Sodium 137 Potassium 4.7 Chloride 101 Carbon Dioxide 29.9 Anion Gap 6.1 BUN 26 H Creatinine 1.98 H Estimated GFR/1.73 m2 33.68 Glucose 263 H Calcium 8.7 Magnesium Folate Urine Color Urine Clarity Urine pH Ur Specific [place] Urine Protein Urine Ketones Urine Blood Urine Nitrite Urine Bilirubin Urine Urobilinogen Ur Leukocyte Esterase Urine Glucose COVID-19 PCR Negative Nasopharyn COVID-19 PCR Not Applicable Ref Test Perform Site [facility] 05/03/20 05/03/20 05/04/20 16:45 22:10 06:15 WBC RBC Hgb Hct MCV MCH MCHC RDW Plt Count MPV Immature Gran % Neutrophils % Lymphocytes % Monocytes % Eosinophils % Basophils % Nucleated RBC % Absolute Neutrophils Absolute Lymphocytes Absolute Monocytes Absolute Eosinophils Absolute Basophils ABG Sample Site ABG pH ABG pCO2 ABG pO2 ABG HCO3 ABG Total CO2 ABG O2 Saturation ABG Base Excess VBG pH 7.27 L VBG pCO2 65 H* VBG pO2 86 VBG HCO3 30 H VBG Total CO2 29 VBG O2 Saturation 97 VBG Base Excess 3 Oxygen Liter Flow FiO2 Sodium 139 Potassium 5.1 Chloride 101 Carbon Dioxide 31.5 Anion Gap 6.5 BUN 31 H Creatinine 2.02 H Estimated GFR/1.73 m2 32.91 Glucose 303 H Calcium 8.2 L Magnesium 1.6 L Folate Urine Color Yellow Urine Clarity Clear Urine pH 5.5 Ur Specific Maurepas 1.020 Urine Protein Negative Urine Ketones Negative Urine Blood Negative Urine Nitrite Negative Urine Bilirubin Negative Urine Urobilinogen 0.2 Ur Leukocyte Esterase Negative Urine Glucose Negative COVID-19 PCR Nasopharyn COVID-19 PCR Ref Test Perform Site 05/04/20 05/04/20 05/04/20 06:15 06:15 08:08 WBC 15.38 H RBC 2.99 L Hgb 9.5 L Hct 31.1 L MCV 104.0 H MCH 31.8 MCHC 30.5 L RDW 13.9 Plt Count 216 MPV 10.5 Immature Gran % 0.5 Neutrophils % 95.6 Lymphocytes % 2.0 Monocytes % 1.8 Eosinophils % 0.0 Basophils % 0.1 Nucleated RBC % 0 Absolute Neutrophils 14.70 H Absolute Lymphocytes 0.31 L Absolute Monocytes 0.28 Absolute Eosinophils 0.00 Absolute Basophils 0.02 ABG Sample Site ABG pH ABG pCO2 ABG pO2 ABG HCO3 ABG Total CO2 ABG O2 Saturation ABG Base Excess VBG pH 7.42 H VBG pCO2 47 VBG pO2 97 VBG HCO3 30 H VBG Total CO2 28 VBG O2 Saturation 99 VBG Base Excess 6 H Oxygen Liter Flow FiO2 Sodium Potassium Chloride Carbon Dioxide Anion Gap BUN Creatinine Estimated GFR/1.73 m2 Glucose Calcium Magnesium Folate > 20.0 H Urine Color Urine Clarity Urine pH Ur Specific [place] Urine Protein Urine Ketones Urine Blood Urine Nitrite Urine Bilirubin Urine Urobilinogen Ur Leukocyte Esterase Urine Glucose COVID-19 PCR Nasopharyn COVID-19 PCR Ref Test Perform Site
--- NOTE | 2020-05-04 16:04 | DI.VRAD_ITS ---
PROCEDURE INFORMATION: Exam: XR Chest, 1 View Exam date and time: 05/02/2020 10:29 PM Age: 69 years old Clinical indication: Shortness of breath; Patient HX: SOB TECHNIQUE: Imaging protocol: XR of the chest Views: 1 view. COMPARISON: CR CHEST 2 VIEWS PA,LAT 05/30/2015 11:42 FINDINGS: Lungs: Bilateral diffuse interstitial infiltrates. Pleural space: Unremarkable. No pleural effusion. No pneumothorax. Heart/Mediastinum: Cardiomegaly. Vasculature: Atherosclerotic disease. Bones/joints: Multilevel degenerative changes of the thoracic spine. IMPRESSION: Bilateral pneumonia. Dictated and Authenticated by: Komal Johnson MD. Ordering:MATT Peralta MD
[2020-05-04] MEDS: LORazepam 1 MG TAB PO/SL (16:21)
--- NOTE | 2020-05-04 17:29 | PDOC.CMPRO ---
- If Service Date Differs Date of service: 05/04/20 Time of Service: 17:29 Care Management Progress Note S/O: Alex Ly as he likes to be called, was sitting up in a chair when CM met with him. He was agreeable to conversation but appeared a bit irritable and had noticeable tremors of his right hand. Alex shared that he plans to drive himself home on Friday. His has found a ride home to [place] tomorrow and will leave the truck for him to drive. Alex assured CM that he has 2 full tanks of oxygen and that he only needs 1/2 tank to get home. Information shared with provider. A: Alex is a 69 year old man admitted with COPD and pneumonia P:Alex will be discharged back to his home in [place], [place] and will follow up with his providers there. Transport is a bit of a concern since he plans to drive himself, alone wearing oxygen. CM will continue to support Alex and his discharge planning needs.
[2020-05-04] MEDS: Normal Saline 500 ML IV (18:41)
[2020-05-04] MEDS: Insulin Glargine 300 UNITS/3 ML PEN 20 UNITS SC (21:32)
[2020-05-05] VITALS (15 sets, daily range): BP systolic 112–158; BP diastolic 57–76; PULSE 68–100; RESP 4–20; TEMP 36.5–37.3; O2SAT 89–99
[2020-05-05] MEDS: methylPREDNISolone SUCC 40 MG VIAL IVP (05:17)
[2020-05-05] MEDS: PIPERACILLIN/TAZO 3.375 GM in Normal Saline 50 ML IVPB ×4 (05:17→22:59)
[2020-05-05] MEDS: Albuterol/Ipratropium 3 ML UPD VIAL UPD ×3 (05:18→22:58)
--- NOTE | 2020-05-05 06:48 | NUR.NOTE ---
around 529, I went in to the pts room to start his anti biotic and neb treatment. The pt stated he needed to urinate, I reminded him that his urinal was next to him on his table. He then proceeded to try to get out of bed. I asked him where he was going and he told me he was going to head outside to take a piss. I asked him to wait and asked if he knew where he was. He told [facility]. I then explained that we could not go outside to urinate but could use the urinal. I also asked him to sit back on the bed and wait for me to unhook him from SCDs and his IV. He got very close to my face and told me to get out of his way or he would get physical with me. At this point I asked the other nurse to call for help. Rogelio Mccarty RN from med surg arrived and was able to get the pt to cooperate with getting unhooked and using the urinal. After voiding the pt then stated he wanted to find his teeth. I mentioned that he had just barely had them in (his mouth). He insisted that he wanted his teeth, eventually he realized that he did have his teeth in his mouth and then got back in to bed. Nursing Note:
[2020-05-05 07:08] LABS: BE (Venous) 7 mmol/L (-2-3); HCO3 (Venous) 32 mmol/L (23-28); O2 Sat (Venous) 94 %; TCO2 (Venous) 30 mmol/L (24-29); pCO2 (Venous) 50 mmHg (41-51); pH (Venous) 7.42 (7.31-7.41); pO2 (Venous) 67 mmHg
[2020-05-05 07:11] LABS: Abs Immature Grans 0.08 10^3/uL (0.0-0.06); Absolute Basophil Count 0.01 10^3/uL (0.0-0.2); Absolute Lymphocyte Count 0.22 10^3/uL (1.2-3.4); Basophils % 0.1; HCT 32.2 % (40.0-50.0); HGB 9.9 g/dL (13.5-17.5); Immature Grans % 0.5; Lymphocytes % 1.5; MCH 30.7 pg (27.0-33.0); MCHC 30.7 % (32.0-36.0); MPV 10.5 fL (8.0-11.0); Monocytes % 2.7; Neutrophils % 95.2; Nucleated RBC 0 %; Platelet Count 243 10^3/uL (130-400); RBC 3.22 10^6/uL (4.36-5.78); RDW 14.2 % (11.8-14.1); RDW-SD 51.8 fL; WBC 14.65 10^3/uL (4.4-10.8)
[2020-05-05 07:19] LABS: Absolute Neutrophil Count 13.95 10^3/uL (1.2-6.7)
[2020-05-05 07:56] LABS: Anion Gap 7.3 mmol/L (3-11); BUN 36 mg/dL (7-18); CO2 32.7 mmol/L (21.0-32.0); CREATININE 1.93 mg/dL (0.70-1.30); Calcium 8.2 mg/dL (8.5-10.1); Chloride 100 mmol/L (98-107); Estimated GFR 34.69 (mL/min/1.73m2); Glucose 262 mg/dL (74-106); Magnesium 1.8 mg/dL (1.8-2.4); Potassium 4.1 mmol/L (3.5-5.1); Sodium 140 mmol/L (136-145); Vitamin B12 482 pg/mL (193-986)
--- NOTE | 2020-05-05 08:08 | W.PM.PROGNOT ---
Date of Service Date of service: 05/05/20 Time of Service: 10:43 Assessment and Plan Assessment and plan (1) Acute on chronic respiratory failure with hypoxia and hypercapnia: Status: Acute Assessment and plan: Multifactorial, due to BLL PNA, present on admission (likely HCAP, COVID negative), causing acute exacerbation of COPD, in addition to GAYATRI, for which the patient was not using his home BiPAP due to recent cataract surgery and relying on likely supratherapeutic doses of oxygen through his concentrator and, therefore, causing CO2 retention. pH remains 7.4. Continue zosyn, but d/c vanco, continue nebs, Transition steroids to PO. Care management is attempting to get in touch with the patient's to instruct her that she either needs to bring the machine from [facility]. or will need to take him straight to [facility] upon discharge. Sputum C&S with normal iris. Negative blood cultures. We have not yet been able to get records from the hospital in [facility]. (2) Pneumonia: Status: Acute Assessment and plan: As above Qualifiers: Pneumonia type: due to unspecified organism (3) Acute respiratory acidosis: Status: Resolved Assessment and plan: As above (4) Acute exacerbation of chronic obstructive pulmonary disease (COPD): Status: Acute Assessment and plan: As above (5) GAYATRI treated with BiPAP: Status: Acute Assessment and plan: As above. Continue BiPAP at HS/whenever sleeping. (6) Hyperkalemia: Status: Resolved Assessment and plan: In setting of hyperglycemia. Better. No evidence of DKA. (7) Steroid-induced hyperglycemia: Status: Acute Assessment and plan: Not touching insulins today as the patient's steroid dose is decreasing. (8) Toxic metabolic encephalopathy: Status: Resolved Assessment and plan: Due to CO2 narcosis. Resolved with BiPAP. (9) Diabetes mellitus type 2 with neurological manifestations: Status: Chronic Assessment and plan: See steroid induced hyperglycemia (10) DVT prophylaxis: Status: Acute Assessment and plan: lovenox on hold due to hyperkalemia. Continue TEDs/SCDs. (11) Discharge planning issues: Status: Acute Assessment and plan: Full code. Patient tells me that the soonest his would be able to pick him up/bring his home BiPAP machine would be Friday. Care management was made aware. I think he will likely be medically stable for discharge Friday-Friday. Subjective Subjective Interval history since last seen: Mr Garg states he is doing better. Denies dizziness, chest pain, shortness of breath even with exertion (he is walking in the hallway when I saw him), nausea/vomiting. Confused when he first wakes up, but then clears right up, per nursing Agitated this morning, which quickly resolved. Told nursing that he has a baseline resting RUE tremor. Suspected alcohol withdrawal did not progress overnight, (CIWA score was 5 at 15:23, then 1, 1, 1). No hallucinations. On 2L, 92-93%. Wore BiPAP the whole night. Exam Narrative Exam Narrative: General: Obese male, very awake and alert, A&Ox3, walking in the hallway without difficulty; I do observe RUE tremor, but not left. No dyspnea/tachypnea HEENT: EOMI, MMM Heart: RRR, no m/r/g Lungs: Expiratory wheezing B, significantly improved. Abdomen: obese, soft, nontender Extremities: no edema BLEs Objective Last Vital Signs Temp 37.2 C 05/05/20 01:35 Pulse 93 H 05/05/20 07:41 Resp 14 05/05/20 07:41 BP 142/57 H 05/05/20 06:39 Pulse Ox 90 L 05/05/20 07:41 Laboratory Results - last 24 hr 05/04/20 05/04/20 05/05/20 06:15 08:08 06:54 WBC RBC Hgb Hct MCV MCH MCHC RDW Plt Count MPV Immature Gran % Neutrophils % Lymphocytes % Monocytes % Eosinophils % Basophils % Nucleated RBC % Absolute Neutrophils Absolute Lymphocytes Absolute Monocytes Absolute Eosinophils Absolute Basophils VBG pH 7.42 H VBG pCO2 47 VBG pO2 97 VBG HCO3 30 H VBG Total CO2 28 VBG O2 Saturation 99 VBG Base Excess 6 H Sodium 140 Potassium 4.1 Chloride 100 Carbon Dioxide 32.7 H Anion Gap 7.3 BUN 36 H Creatinine 1.93 H Estimated GFR/1.73 m2 34.69 Glucose 262 H Calcium 8.2 L Magnesium 1.8 Vitamin B12 482 Folate > 20.0 H 05/05/20 05/05/20 06:54 06:54 WBC 14.65 H RBC 3.22 L Hgb 9.9 L Hct 32.2 L MCV 100.0 H MCH 30.7 MCHC 30.7 L RDW 14.2 H Plt Count 243 MPV 10.5 Immature Gran % 0.5 Neutrophils % 95.2 Lymphocytes % 1.5 Monocytes % 2.7 Eosinophils % 0.0 Basophils % 0.1 Nucleated RBC % 0 Absolute Neutrophils 13.95 H Absolute Lymphocytes 0.22 L Absolute Monocytes 0.40 Absolute Eosinophils 0.00 Absolute Basophils 0.01 VBG pH 7.42 H VBG pCO2 50 VBG pO2 67 VBG HCO3 32 H VBG Total CO2 30 H VBG O2 Saturation 94 VBG Base Excess 7 H Sodium Potassium Chloride Carbon Dioxide Anion Gap BUN Creatinine Estimated GFR/1.73 m2 Glucose Calcium Magnesium Vitamin B12 Folate Objective Narrative Objective Narrative: CXR 05/04/2020: Significant improvement in the bibasilar infiltrates since 05/02/2020.
[2020-05-05] MEDS: Normal Saline Flush 10 ML SYR IVP ×3 (08:16→22:59)
[2020-05-05] MEDS: Simvastatin 20 MG TAB PO (08:17)
[2020-05-05] MEDS: Docusate Sodium 100 MG CAP PO (08:17)
[2020-05-05] MEDS: Gabapentin 300 MG CAP PO ×2 (08:17→14:21)
[2020-05-05] MEDS: Cholecalciferol (Vitamin D3) 400 UNIT TAB PO (08:17)
[2020-05-05] MEDS: Clopidogrel 75 MG TAB PO (08:17)
[2020-05-05] MEDS: Multivitamin TAB 1 TAB PO (08:17)
[2020-05-05] MEDS: Pantoprazole 40 MG VIAL IVP (08:18)
[2020-05-05] MEDS: Folic Acid 1 MG TAB PO (08:18)
[2020-05-05] MEDS: Furosemide 40 MG TAB PO (08:18)
[2020-05-05] MEDS: Ferrous Sulfate 325 MG TAB PO (08:18)
[2020-05-05] MEDS: Metoprolol 25 MG TAB 12.5 MG PO ×2 (08:18→19:21)
[2020-05-05] MEDS: Thiamine 100 MG TAB PO (08:19)
[2020-05-05] MEDS: Insulin Aspart 300 UNITS/3 ML PEN SC ×7 (08:19→21:26)
[2020-05-05] MEDS: VANCOMYCIN 1,000 MG in Normal Saline 250 ML 166.667 MG IVPB (09:19)
[2020-05-05] MEDS: Budesonide/Formoterol 160/4.5 6 GM 60 PUFF INH IH ×2 (09:46→19:20)
--- NOTE | 2020-05-05 09:46 | CMPROGNOTE_ITS ---
- If Service Date Differs Date of service: 05/05/20 Time of Service: 09:46 Care Management Progress Note S/O: Alex was sitting up in a chair when CM met with him. He stated that he is feeling much better today. He shared that he ambulated with PT and again alone in his room. Alex stated that he is looking forward to going home. His is scheduled to leave this afternoon and he will drive himself home when he is discharged as long as he is feeling well enough and is cleared by provider to do so. He already has a followup appointments with his PCP scheduled for the week after next. A: Alex is a 69 year old man admitted with COPD and pneumonia P:Alex will be discharged back to his home in [place], [place] and will follow up with his providers there. Transport is a bit of a concern since he plans to drive himself, alone wearing oxygen. CM will continue to support Alex and his discharge planning needs.
--- NOTE | 2020-05-05 10:12 | PT.INTREAT ---
Date of service: 05/05/20 Time of Service: 10:13 PT Notes Visit Reasons: COPD, PNEUMONIA Inpatient Physical Therapy Treatment Note [facility] Date: 05/05/2020 PRECAUTIONS: Fall SUBJECTIVE: Malachi is pleasant and agreeable to participating in PT, stating that he is feeling good today and that he feels that he is pretty much back at his baseline level of function. OBJECTIVE: Patient observed transferring and ambulating without assistive device within room, independently without difficulty. PAIN: No c/o pain BED MOBILITY/TRANSFERS Supine-sit: I with HOB flat Sit-supine: I with HOB flat Sit-stand: I Stand-sit: I Bed-Chair: I Chair-bed: I GAIT Assistive Device: No AD Weight bearing: Full Assist: I Distance: 500' in both a.m. and p.m. Deviation: No SOB, donned personal shoes for increased stability and balance with ambulation, 2L O2 via NC, patient pushed/managed O2 tank/tubing without difficulty STAIRS: Up/down 3x4 and 2x6 using B rails and a step-over pattern, independently TOILETING: Patient toileted independently ASSESSMENT: Patient demonstrates independence with gait, without assistive device support, transfers, and stair negotiation, at this time. He demonstrates improved gait stability and balance while wearing shoes with ambulation. He does require minimal assist with management of various lines and leads in a.m., although is free of lines and leads in p.m., except for O2 tubing, which he manages independently. TREATMENT CODE/TIME: Session 1: 25 minutes; 55595 x2 Session 2: 20 minutes; [id number]
--- NOTE | 2020-05-05 14:09 | NUR.NOTE ---
Nursing Note: Pt transferred to rm [id number] from ICU. see shift assessment
--- NOTE | 2020-05-05 14:43 | PT.INDS ---
Date of service: 05/05/20 Time of Service: 14:43 PT Notes Visit Reasons: COPD, PNEUMONIA Referring Doctor: Jerrica Felder MD PT Orders: PT CONSULT: Limited ability Precautions: Fall. Standard. Activity as tolerated. Patient Profile/Admitting Diagnosis: Wilver is a 69-year-old male who presented to the ED on 05/02/2020 with chief complaints of worsening shortness of breath. He is diagnosed pneumonia, essential hypertension, transient ischemic attack, hyperlipidemia, and acute on chronic respiratory failure with hypoxia and hypercapnia. PMHX: Diabetes Mellitus Chronic Obstructive Disease Social History/Home Situation: Originally from [place]. Travels to [place] every year to [place]. Has a camper in [place], [place] that they have had for over 20 years. Uses Bipap at home at night. Equipment Owned/DME: BiPAP, no assistive ambulatory device Subjective: Per GEOTHERMAL FIELD TECHNICIAN communication, patient feels he is at his baseline level of function. Objective: General Observation: Observed patient to have steady gait, and good balance with dynamic activities while working with GEOTHERMAL FIELD TECHNICIAN. Mental Status: Alert and oriented x 4 Pain: None reported ROM: Right Upper Extremity: Shoulder Flexion WFL. Shoulder abduction WFL. Elbow flexion WFL. Wrist flexion WFL. Opening and closing of hand WFL. Left Upper Extremity: Shoulder Flexion WFL. Shoulder abduction WFL. Elbow flexion WFL. Wrist flexion WFL. Opening and closing of hand WFL. Right Lower Extremity: Hip flexion WFL. Hip abduction WFL. Knee flexion WFL. Ankle dorsiflexion WFL. Ankle plantarflexion WFL. Left Lower Extremity: Hip flexion WFL. Hip abduction WFL. Knee flexion WFL. Ankle dorsiflexion WFL. Ankle plantarflexion WFL. Strength: Good throughout UE and LE's , per GEOTHERMAL FIELD TECHNICIAN communication. Sensation: WNL Bed Mobility/Transfers: Supine to sit SBA I Sit to stand I Stand to sit I Bed to chair I Chair to bed I Gait: 500 feet I pushing his oxygen tank, at 2L Balance: Static Sitting: Normal Dynamic Sitting: Normal Static Standing: Good Dynamic Standing: Good Special Tests: Mobility Limitations Standardized Measure [facility] AM-PAC 6 clicks Basic Mobility Inpatient Short Form: Raw Score: 25 CMS Score: 0% deficit Assessment: Wilver demonstrates no functional mobility deficits at this time as a result from admitting diagnosis. He is safe and appropriate to continue with independent function and ambulation, with ability to return home at time of hospital discharge. Patient's status completed by observation during GEOTHERMAL FIELD TECHNICIAN treatment and per communication with GEOTHERMAL FIELD TECHNICIAN. Goals: ALL MET Goals X1 week 1. Supine-Sit independent 2. Sit-Supine independent 3. Sit-Stand independent 4. Stand-Sit independent 5. Bed-Chair independent 6. Chair-Bed independent 7. Independent gait on level surface with use of front-wheeled walker or single point cane for at least 300 feet without report of pain nor dyspnea, Able to complete without AD. 8. Independent stair negotiation while holding onto bilateral rails for at least 5 steps without report of pain nor dyspnea 9. Independent with home exercise program 10. Good static and dynamic standing balance/tolerance DISCHARGE RECOMMENDATIONS: Home when medically cleared by hospitalist. Discharged from PT service.
--- NOTE | 2020-05-05 15:23 | W.INDIABCONS ---
Date of service: 05/05/20 Time of Service: 15:23 Diabetes Inpatient Consult DESCRIPTION/ASSESSMENT: Pt admitted initially to ICU for PNA, chronic respiratory failure, steriod induced hyperglycemia, DMS, COPD,HTN, HLD, GERD with elevated BUN/Cre and glucose[place] No recent A1C. Meds include aspart, lantus. BMI indicates obesity. Met with Malachi today, he declined diabetes education at this time. PO intake adequate to meet nutrient and fluid needs. INTERVENTION: declined diabtes education Diabetic DIet PLAN: will continue to monitor po intake, labs and weight. Time Spent in Nutritional Counseling and Treatment: 5 min
[2020-05-05] MEDS: Normal Saline 500 ML 15 ML IV (18:09)
[2020-05-05] MEDS: predniSONE 20 MG TAB 40 MG PO (19:20)
[2020-05-05] MEDS: Gabapentin 600 MG TAB PO (19:21)
[2020-05-05] MEDS: Insulin Glargine 300 UNITS/3 ML PEN 20 UNITS SC (21:26)
[2020-05-06] VITALS (9 sets, daily range): BP systolic 107–168; BP diastolic 71–75; PULSE 79–99; RESP 1–19; TEMP 36.2–36.8; O2SAT 95–97
[2020-05-06] MEDS: PIPERACILLIN/TAZO 3.375 GM in Normal Saline 50 ML IVPB ×4 (05:05→23:36)
[2020-05-06] MEDS: Albuterol/Ipratropium 3 ML UPD VIAL UPD ×4 (06:05→23:36)
[2020-05-06 06:52] LABS: Abs Immature Grans 0.08 10^3/uL (0.0-0.06); Absolute Basophil Count 0.01 10^3/uL (0.0-0.2); Absolute Lymphocyte Count 0.49 10^3/uL (1.2-3.4); Absolute Monocyte Count 0.39 10^3/uL (0.1-0.8); Absolute Neutrophil Count 9.23 10^3/uL (1.2-6.7); Basophils % 0.1; HCT 32.1 % (40.0-50.0); HGB 10.2 g/dL (13.5-17.5); Immature Grans % 0.8; Lymphocytes % 4.8; MCH 31.3 pg (27.0-33.0); MCHC 31.8 % (32.0-36.0); MCV 98.5 fL (80-95); MPV 10.4 fL (8.0-11.0); Monocytes % 3.8; Neutrophils % 90.5; Nucleated RBC 0 %; Platelet Count 226 10^3/uL (130-400); RBC 3.26 10^6/uL (4.36-5.78); RDW 14.1 % (11.8-14.1); RDW-SD 51.3 fL
[2020-05-06 07:02] LABS: Anion Gap 4.4 mmol/L (3-11); BUN 35 mg/dL (7-18); CO2 32.6 mmol/L (21.0-32.0); CREATININE 1.73 mg/dL (0.70-1.30); Calcium 8.3 mg/dL (8.5-10.1); Chloride 99 mmol/L (98-107); Estimated GFR 39.36 (mL/min/1.73m2); Glucose 234 mg/dL (74-106); Magnesium 1.5 mg/dL (1.8-2.4); Potassium 3.7 mmol/L (3.5-5.1); Sodium 136 mmol/L (136-145)
[2020-05-06] MEDS: Pantoprazole 40 MG VIAL IVP (08:00)
[2020-05-06] MEDS: Gabapentin 600 MG TAB PO ×2 (08:00→19:37)
[2020-05-06] MEDS: Clopidogrel 75 MG TAB PO (08:00)
[2020-05-06] MEDS: Thiamine 100 MG TAB PO (08:00)
[2020-05-06] MEDS: Multivitamin TAB 1 TAB PO (08:00)
[2020-05-06] MEDS: Furosemide 40 MG TAB PO (08:00)
[2020-05-06] MEDS: Simvastatin 20 MG TAB PO (08:00)
[2020-05-06] MEDS: Cyanocobalamin 500 MCG TAB 1000 MCG PO (08:00)
[2020-05-06] MEDS: predniSONE 20 MG TAB 40 MG PO (08:00)
[2020-05-06] MEDS: Folic Acid 1 MG TAB PO (08:01)
[2020-05-06] MEDS: Cholecalciferol (Vitamin D3) 400 UNIT TAB PO (08:01)
[2020-05-06] MEDS: Ferrous Sulfate 325 MG TAB PO (08:01)
[2020-05-06] MEDS: Metoprolol 25 MG TAB 12.5 MG PO ×2 (08:01→19:38)
[2020-05-06] MEDS: Docusate Sodium 100 MG CAP PO (08:01)
[2020-05-06] MEDS: Insulin Aspart 300 UNITS/3 ML PEN SC ×8 (08:02→22:09)
[2020-05-06] MEDS: Budesonide/Formoterol 160/4.5 6 GM 60 PUFF INH IH ×2 (10:45→19:37)
--- NOTE | 2020-05-06 15:12 | W.PM.PROGNOT ---
Date of Service Date of service: 05/06/20 Time of Service: 15:12 Assessment and Plan Assessment and plan (1) Pneumonia: Status: Acute Assessment and plan: Continue aerosolized bronchodilators along with IV Zosyn and use of Acapella and incentive spirometry for pulmonary toiletry. We will switch him over to Augmentin and discharge him home on another 7 days of oral antibiotics with a follow-up chest x-ray as an outpatient in 2 weeks. Qualifiers: Pneumonia type: due to unspecified organism (2) Acute exacerbation of chronic obstructive pulmonary disease (COPD): Status: Acute Assessment and plan: I will start to wean his prednisone. He is currently on 80 mg of prednisone a day. I think this can be weaned down to 40 mg daily. Continue with his Symbicort along with scheduled DuoNeb updrafts. Continue to wean his oxygen and check an amatory pulse oximetry in the morning prior to discharge. Hopefully he will be ready for discharge tomorrow morning. (3) Acute on chronic respiratory failure with hypoxia and hypercapnia: Status: Acute Assessment and plan: Wean off oxygen as tolerated and check amatory pulse oximetry. Patient apparently has been noncompliant with use of oxygen at home. Patient needs to use of his CPAP while sleeping due to his hypercapnia. (4) Diabetes mellitus type 2 with neurological manifestations: Status: Chronic Assessment and plan: Continue current schedule of Lantus 20 units nightly along with mealtime coverage and sliding scale. May need to increase his sliding scale to insulin resistant level as his blood sugars have been running in the 300s. However hopefully this will come down with weaning his prednisone (5) DVT prophylaxis: Status: Acute Assessment and plan: Resume Lovenox at DVT prophylactic level 40 mg subcutaneously daily Subjective Subjective Patient reports: no new complaints, feels better and tolerating a regular diet; denies nausea, vomiting, shortness of breath and fever Exam Narrative Exam Narrative: Obese male lying upright in his bed in no distress. He is alert and oriented person place time circumstance. Lungs are clear to auscultation Heart is regular rate and rhythm Abdomen is obese soft nontender nondistended Objective Last Vital Signs Temp 36.5 C 05/06/20 11:59 Pulse 79 05/06/20 11:59 Resp 19 05/06/20 11:59 BP 164/71 H 05/06/20 11:59 Pulse Ox 95 05/06/20 11:59 Laboratory Results - last 24 hr 05/06/20 05/06/20 06:30 06:30 WBC 10.20 D RBC 3.26 L Hgb 10.2 L Hct 32.1 L MCV 98.5 H MCH 31.3 MCHC 31.8 L RDW 14.1 Plt Count 226 MPV 10.4 Immature Gran % 0.8 Neutrophils % 90.5 Lymphocytes % 4.8 Monocytes % 3.8 Eosinophils % 0.0 Basophils % 0.1 Nucleated RBC % 0 Absolute Neutrophils 9.23 H Absolute Lymphocytes 0.49 L Absolute Monocytes 0.39 Absolute Eosinophils 0.00 Absolute Basophils 0.01 Sodium 136 Potassium 3.7 Chloride 99 Carbon Dioxide 32.6 H Anion Gap 4.4 BUN 35 H Creatinine 1.73 H Estimated GFR/1.73 m2 39.36 Glucose 234 H Calcium 8.3 L Magnesium 1.5 L
[2020-05-06] MEDS: Normal Saline Flush 10 ML SYR IVP (17:22)
--- NOTE | 2020-05-06 18:16 | CMPROGNOTE_ITS ---
Care Management Progress Note S/O: Malachi continues to be closely monitored at this time, per MD anticipate he will remain at [facility] through the weekend. CM continues to follow. A: Alex is a 69 year old man admitted with COPD and pneumonia P: Alex will be discharged back to his home in [place], [place] and will follow up with his local providers. Transport is a bit of a concern since he plans to drive himself, alone, wearing oxygen. CM will continue to support Alex and his discharge planning needs.
[2020-05-06] MEDS: Magnesium Oxide 400 MG TAB PO (19:37)
[2020-05-06] MEDS: Enoxaparin 40 MG/0.4 ML SYR SC (19:51)
[2020-05-06] MEDS: Insulin Glargine 300 UNITS/3 ML PEN 25 UNITS SC (22:12)
[2020-05-07] MEDS: Albuterol/Ipratropium 3 ML UPD VIAL UPD ×2 (06:23→11:15)
[2020-05-07] MEDS: PIPERACILLIN/TAZO 3.375 GM in Normal Saline 50 ML IVPB ×2 (06:23→12:15)
[2020-05-07] MEDS: Normal Saline Flush 10 ML SYR IVP ×2 (06:24→08:41)
--- NOTE | 2020-05-07 07:00 | DI.RAD_ITS ---
EXAM: XR CHEST 2V PA LATERAL CLINICAL HISTORY: Follow-up pneumonia TECHNIQUE: 2D digital imaging was performed. COMPARISON: CR XR PORTABLE CHEST AP from 05/04/2020 FINDINGS: MEDIASTINUM: Normal. HEART: Normal. PULMONARY VASCULATURE: Normal. LUNGS: Mild linear atelectasis versus scarring. No focal infiltrate. PLEURAL SPACE: No pleural effusion or pneumothorax. BONE:Flowing osteophytes. IMPRESSION: No acute pulmonary findings. DATA REPOSITORY: RADIATION DOSE DELIVERED:
[2020-05-07 07:16] LABS: HCT 32.1 % (40.0-50.0); HGB 10.5 g/dL (13.5-17.5); MCHC 32.7 % (32.0-36.0); MCV 97.9 fL (80-95); MPV 10.3 fL (8.0-11.0); Platelet Count 232 10^3/uL (130-400); RBC 3.28 10^6/uL (4.36-5.78); RDW 14.5 % (11.8-14.1); RDW-SD 51.8 fL; WBC 9.33 10^3/uL (4.4-10.8)
[2020-05-07 07:30] LABS: BUN 31 mg/dL (7-18); CREATININE 1.74 mg/dL (0.70-1.30); Chloride 100 mmol/L (98-107); Glucose 115 mg/dL (74-106); Magnesium 1.5 mg/dL (1.8-2.4); Potassium 3.4 mmol/L (3.5-5.1); Sodium 142 mmol/L (136-145)
--- NOTE | 2020-05-07 07:52 | DI.VRAD_ITS ---
PROCEDURE INFORMATION: Exam: XR Chest, 2 Views Exam date and time: 05/07/2020 7:22 AM Age: 69 years old Clinical indication: Other: Follow-up pneumonia TECHNIQUE: Imaging protocol: XR of the chest Views: 2 views. COMPARISON: 1. CR - XR PORTABLE CHEST AP 05/02/2020 10:20:30 PM 2. CR - CHEST 2 VIEWS PA,LAT 04/30/2015 11:42:46 AM 3. CR XR PORTABLE CHEST AP 05/04/2020 11:02 AM FINDINGS: Lungs: Unremarkable. No consolidation. Pleural space: Unremarkable. No pleural effusion. No pneumothorax. Heart/Mediastinum: Unremarkable. No cardiomegaly. Bones/joints: Unremarkable. IMPRESSION: No acute findings. Dictated and Authenticated by: Anthony Ghosh MD. Ordering:.[facility] Corrina Phan MD
[2020-05-07 07:53] VITALS: BP 127/66; PULSE 93; RESP 18; TEMP 37.3; O2SAT 95
[2020-05-07] MEDS: Budesonide/Formoterol 160/4.5 6 GM 60 PUFF INH IH (08:34)
[2020-05-07] MEDS: Insulin Aspart 300 UNITS/3 ML PEN SC ×2 (08:39→12:16)
[2020-05-07] MEDS: Multivitamin TAB 1 TAB PO (08:41)
[2020-05-07] MEDS: Pantoprazole 40 MG VIAL IVP (08:41)
[2020-05-07] MEDS: Gabapentin 600 MG TAB PO (08:41)
[2020-05-07] MEDS: Metoprolol 25 MG TAB 12.5 MG PO (08:42)
[2020-05-07] MEDS: Simvastatin 20 MG TAB PO (08:42)
[2020-05-07] MEDS: Ferrous Sulfate 325 MG TAB PO (08:43)
[2020-05-07] MEDS: Magnesium Oxide 400 MG TAB PO (08:43)
[2020-05-07] MEDS: Furosemide 40 MG TAB PO (08:43)
[2020-05-07] MEDS: Cyanocobalamin 500 MCG TAB 1000 MCG PO (08:43)
[2020-05-07] MEDS: Cholecalciferol (Vitamin D3) 400 UNIT TAB PO (08:43)
[2020-05-07] MEDS: predniSONE 20 MG TAB 40 MG PO (08:43)
[2020-05-07] MEDS: Thiamine 100 MG TAB PO (08:43)
[2020-05-07] MEDS: Folic Acid 1 MG TAB PO (08:43)
[2020-05-07] MEDS: Clopidogrel 75 MG TAB PO (08:43)
[2020-05-07] MEDS: Docusate Sodium 100 MG CAP PO (08:43)
[2020-05-07 09:22] VITALS: PULSE 103; PULSE 114; RESP 16; RESP 20; O2SAT 90; O2SAT 98
--- NOTE | 2020-05-07 09:43 | PDOC.CMDIS ---
LACE Index Scoring Tool - Questions: Length of Stay (in days): 4 - 6 Acuity (Admit via E.D.?): Yes Comorbidities: Previous M.I., Diabetes w/o Complication, Chronic Pulmonary Disease E.D. Visits: 1 - Answers: Total Score: 13 Risk of Readmission: High Risk Care Management Discharge Reason for Hospitalization: Pneumonia Discharge Plan: Slim will be discharged to home and will transport himself back to his home in [place], [place]. He will follow up with his local providers and discharge plan of care as prescribed. Patient/Family Education Needs: Review discharge instructions, discuss Ask Me Three. Services Needed at Discharge: Oxygen Therapy (Resumption)
[2020-05-07 11:15] VITALS: RESP 5; O2SAT 96
[2020-05-07 11:16] VITALS: RESP 5
--- NOTE | 2020-05-07 12:48 | DSE_ITS ---
Date of service: 05/07/20 Time of Service: 12:48 DS: Diagnosis Discharge Diagnosis (1) Pneumonia: Start date: 05/07/20 Start time: 12:48 Status: Acute Asessment and Plan: Found on imaging LACQUERER. bilateral basilar interstitial infiltrates. Initiated on vanco and zosyn in the ED. At time of admission he was requiring higher oxygen levels than his usual 2 liters and had SOB. Today at baseline. Blood culture with no growth Received 5 days zosyn will transition to augmentin for 5 days to complete 10 day course antibiotic therapy. Will also taper steroid dose for 5 more days. Oxygen requirements are at baseline, he uses 2 liters at all times. He lives in [place] and will be traveling back there today or tomorrow. Recommend follow up with PCP in 1 week. (2) Acute exacerbation of chronic obstructive pulmonary disease (COPD): Start date: 05/07/20 Start time: 12:53 Status: Acute Asessment and Plan: Secondary to pneumonia. Continue oxygen and home regimen. as above (3) Acute on chronic respiratory failure with hypoxia and hypercapnia: Start date: 05/07/20 Start time: 12:53 Status: Resolved Asessment and Plan: Stable at baseline. Will finish course of treatment with augmentin and steroid taper (4) Diabetes mellitus type 2 with neurological manifestations: Start date: 05/07/20 Start time: 12:55 Status: Chronic Asessment and Plan: Weaning steroids, this should improve glucose levels. Follow up with PCP for further treatment of DM. Above case discussed with Dr. Houser who is in agreement. (5) DVT prophylaxis: Status: Acute Discharge Plan Disposition Patient Disposition: HOME Condition: Improving Discharge Details Reason For Visit: COPD, PNEUMONIA Admit Date/Time: 05/02/20 23:05 Admit Provider: Raudel Lowe Attending Provider: Raudel Lowe Primary Care Provider: Emmie,[facility] Course Hospital Course: 69 y.o male with PMH of COPD, GAYATRI on bipap, DM, Chronic respiratory failure requiring 2 L oxygen admitted to m/s from [facility] ED after presenting with increased work of breathing, requiring more oxygen on day of admission. Mr. Garg and his have been at their camp in [place] since 04/18, he live in [place], [place]. He did not bring his albuterol nebs or symbicort with him. Imaging in the ED revealed bilateral baslar pneumonia, he was requiring greater than 2 L oxygen and he had leukocytosis. Vanco and zosyn were initiated in the ED and he was admitted for further management. Over the course of treatment he received 5 days zosyn. Blood cultures grew no growth. His leukocytosis improved. Gram stain with normal iris. He has s ubsequent COPD exacerbation and required treatment with steroids. He was able to wean his oxygen to baseline yesterday and today feels well enough to go home. Ambulatory exercise reveals 90 % saturation on 2 l with ambulation and recovery to 98% with rest. Repeat chest xray with no acute findings. He will be transitioned to oral augmentin to finish a 10 day course of antibiotics and a 5 days steroid taper. He will need to follow up with his PCP in 1 week, he is planning on returning home today or tomorrow. He did have a negative COVID>. Home Meds and New Rx's Prescriptions: New budesonide-formoterol [Symbicort] 160-4.5 mcg/actuation Hfa Aerosol Inhaler 2 puff inhalation BID Qty: 10.2 RF: 0 Lantus Solostar U-100 Insulin 100 unit/mL (3 mL) Insulin Pen 25 unit subcut HS Qty: 15 RF: 0 amoxicillin-pot clavulanate [Augmentin] 875-125 mg tablet 1 tab PO BID Qty: 11 RF: 0 prednisone 10 mg tablet 10 mg PO DAILY Qty: 13 RF: 0 Continued furosemide 40 MG tablet 40 mg PO DAILY RF: 0 clopidogrel [Plavix] 75 MG tablet 75 mg PO DAILY RF: 0 tramadol 50 MG tablet 50 mg PO PRN PRNRF: 0 lorazepam 0.5 MG tablet 0.5 mg PO PRN PRNRF: 0 simvastatin 20 MG tablet 20 mg PO DAILY RF: 0 ferrous sulfate 325 MG tablet 325 mg PO DAILY RF: 0 folic acid 1 MG tablet 1 mg PO DAILY RF: 0 docusate sodium [Stool Softener] 100 MG capsule 100 mg PO DAILY RF: 0 cholecalciferol (vitamin D3) [Vitamin D3] 400 UNIT tablet 400 unit PO DAILY RF: 0 metoprolol tartrate 12.5 MG tablet 12.5 mg PO BID Qty: 60 RF: 0 No Action gabapentin 800 mg Tablet 800 mg PO TID RF: 0 Discharge Instructions Instructions: COPD (Chronic Obstructive Pulmonary Disease) (DC), Community Acquired Pneumonia (DC), Pulmonary Rehabilitation (DC), Nutrition Guidelines for People with COPD (DC) Additional Instructions: Follow up with your PCP in 1 week Take augmentin as prescribed. Take prednisone 40 mg x 2 days 20 mg x 2 days 10 mg x 1 day You have been placed on lantus 25 units daily. Follow up with your PCP for further management of your diabetic regimen. You will likely be able to decrease the dose of lantus once you have tapered off your steroids. Continue to use your oxygen and inhalers. Activity:: Activity as Tolerated Equipment/Supplies:: No Equipment Needed Diet:: Carb Counting Discharge Orders Discharge Orders: Discharge Order (Routine); Ordered 05/07/20 Ordered By: Suze Hernandez DS: Summary Status at Discharge Functional status at discharge: independent ambulation Overall status at discharge: patient is progressing back to baseline Mental Status: mental status grossly normal Speech and Movement: speech and movement normal Mood: congruent mood Affect: normal affect Exam Const General: cooperative and no acute distress Nutritional Appearance: obese Orientation: alert and oriented x3 Eyes Sclera: sclerae normal Pupils: PERRL Resp Effort & Inspection: able to speak in complete sentences Auscultation: diminished lung sounds and rales bilaterally Cardio Jugular venous pressure: no JVD Rate: tachycardic Rhythm: regular rhythm Heart Sounds: S1 normal and S2 normal GI Palpation: soft and nontender Auscultation: normal bowel sounds Skin General skin exam: no rashes or lesions noted Neuro General: moves all extremities Cranial Nerves: CN's II-XI intact bilaterally Cognition: normal cognition Speech: speech normal Extrem General: no clubbing, cyanosis or edema Psych Appearance: grossly normal Mental Status: mental status grossly normal Speech and Movement: speech and movement normal Mood: congruent mood Affect: normal affect Attitude: cooperative DS: Data Vitals/I&O Vitals and I&O: Vital Signs Temperature 37.3 C 05/07/20 07:53 Temperature Source Temporal Artery Scan 05/07/20 07:53 Pulse 93 H 05/07/20 07:53 Pulse Rhythm Regular 05/07/20 00:06 Pulse 97 H 05/04/20 17:00 Respiratory Rate 18 05/07/20 07:53 Respiratory Effort Non-Labored 05/07/20 00:06 Respiratory Depth Normal 05/07/20 00:06 Respiratory Pattern Normal 05/07/20 00:06 Blood Pressure 127/66 05/07/20 07:53 Blood Pressure Mean 78 05/05/20 06:39 Blood Pressure Position Supine 05/04/20 09:13 Pulse Oximetry 96 05/07/20 11:15 Oxygen Delivery Method Nasal Cannula 05/07/20 11:15 Oxygen Flow Rate 2 05/07/20 11:15 Fraction of Inspired Oxygen (FIO2) 28 05/05/20 23:51 Pain Level 0 05/07/20 07:53 Comment 05/03/20 14:14 Intake & Output 05/06/20 05/07/20 05/07/20 23:59 11:59 23:59 Intake Total 1014.5 / 1354.5 100 / 100 Output Total 625 / 1125 900 / 900 Balance 389.5 / 229.5 -800 / -800 Weight 109.8 kg Intake: IV 534.5 / 634.5 100 / 100 Oral 480 / 720 Output: Urine 625 / 1125 900 / 900 Other: Urine Color Yellow Yellow Urine Appearance Clear Clear Urine Odor Normal Comment pt voided independently in toilet na Stool Size Large Stool Characteristics Formed Voiding Methods Urinal Urinal Data Completed and Pending Completed studies during hospitalization [Text1]: TECHNIQUE: Imaging protocol: XR of the chest Views: 2 views. COMPARISON: 1. CR - XR PORTABLE CHEST AP 05/02/2020 10:20:30 PM 2. CR - CHEST 2 VIEWS PA,LAT 04/30/2015 11:42:46 AM 3. CR XR PORTABLE CHEST AP 05/04/2020 11:02 AM FINDINGS: Lungs: Unremarkable. No consolidation. Pleural space: Unremarkable. No pleural effusion. No pneumothorax. Heart/Mediastinum: Unremarkable. No cardiomegaly. Bones/joints: Unremarkable. IMPRESSION: No acute findings. Exam(s) [id number] RAD:Chest 2 Views PA,Lat SYMPTOMS/DIAGNOSIS: COUGH, BREATHING PROBLEM CHEST X-RAY, PA AND LATERAL: No priors. The heart size and pulmonary vasculature are within normal limits. No definite focal infiltrate, effusion or pneumothorax is identified. IMPRESSION: No definite acute pulmonary process. Followup as clinically appropriate. FINDINGS: MEDIASTINUM: Normal. HEART: Upper limits of normal in size. PULMONARY VASCULATURE: Normal. LUNGS: Increased interstitial infiltrates particularly in the lung bases left greater than right. PLEURAL SPACE: No pleural effusion or pneumothorax. BONE:Within normal limits for the patient's age. OTHER FINDINGS:Normal. IMPRESSION: Bilateral Labs on day of discharge: Labs from last 24 hours 05/07/20 05/07/20 06:40 06:40 WBC 9.33 RBC 3.28 L Hgb 10.5 L Hct 32.1 L MCV 97.9 H MCH 32.0 MCHC 32.7 RDW 14.5 H Plt Count 232 MPV 10.3 Sodium 142 Potassium 3.4 L Chloride 100 Carbon Dioxide 38.0 H Anion Gap 4.0 BUN 31 H Creatinine 1.74 H Estimated GFR/1.73 m2 39.10 Glucose 115 H D Calcium 8.0 L Magnesium 1.5 L Preliminary micro results at discharge 05/02/20 23:30 Blood Culture - Preliminary Blood NO GROWTH 96 HOURS 05/02/20 22:40 Blood Culture - Preliminary Blood NO GROWTH 96 HOURS [facility] Medical History Cardiac arrest due to respiratory disorder Chronic respiratory failure with hypoxia and hypercapnia COPD (chronic obstructive pulmonary disease) Diabetes mellitus type 2 with neurological manifestations Essential hypertension HLD (hyperlipidemia) Obesity (BMI 30-39.9) GAYATRI treated with BiPAP TIA (transient ischemic attack) Vision loss, left eye Surgical History S/P cataract extraction and insertion of intraocular lens right eye Social History Smoking/Tobacco Use Status: Former Tobacco Use Quit Date: 07/21/12 Alcohol Intake: current Alcohol Intake frequency: a few times a week Drug use: Never Do you feel safe at home: Yes Do you feel safe in your relationship?: Yes
== END 2020-05-07 14:48 | disposition home or self-care (01) | DRG 193 ==
LOC: ER 05-03 00:05 → ICU 05-03 00:09 → MS 05-05 11:31
PROVIDERS: Internal Medicine; Admitting Provider Family Medicine; Emergency Provider Emergency Medicine; Visit Provider Family Medicine
DX: J18.9 Pneumonia, unspecified organism (principal); J96.22 Acute and chronic respiratory failure with hypercapnia; J96.21 Acute and chronic respiratory failure with hypoxia; G92 Toxic encephalopathy; J44.0 Chronic obstructive pulmonary disease with (acute) lower respiratory infection; E87.2 Acidosis; J44.1 Chronic obstructive pulmonary disease with (acute) exacerbation; Z87.891 Personal history of nicotine dependence; Z86.73 Personal history of transient ischemic attack (TIA), and cerebral infarction without residual deficits; R06.02 Shortness of breath; I10 Essential (primary) hypertension; Z79.01 Long term (current) use of anticoagulants; E78.5 Hyperlipidemia, unspecified; E11.42 Type 2 diabetes mellitus with diabetic polyneuropathy; K21.9 Gastro-esophageal reflux disease without esophagitis; E87.5 Hyperkalemia; E11.65 Type 2 diabetes mellitus with hyperglycemia; T38.0X5A Adverse effect of glucocorticoids and synthetic analogues, initial encounter; E66.9 Obesity, unspecified; Z68.33 Body mass index [BMI] 33.0-33.9, adult; G47.33 Obstructive sleep apnea (adult) (pediatric); Z86.74 Personal history of sudden cardiac arrest; Z99.81 Dependence on supplemental oxygen
CPT/HCPCS: 36415; 80048; 80053; 82550; 82805; 85027; 87040; 93005; 94618; 94640; 96374; 96375; 97162; 97530; 99223; 99232; 99233; 99239; 99253; 99285; 99291; J1650; U0003; 36600; 71045; 71046; 81003; 82607; 82746; 83735; 83880; 84484; 85025; 85610; 85730; 87070; 87205; 93010; 94660; 94667; 94668; J2060; J2543; J2930; J3490; J7512; J7620